=== PATIENT | female | born 1960 | race Caucasian/White ===

== ENCOUNTER → 2016-06-29 | Outpatient (CLI) | payer MEDICAID ==
[~2016-06-29] MED LIST: ADVAIR 500/28 DISKU1 IH; ADVAIR 500/28 DISKUS IH; ALPARAZOLAM0.5 MG PO; ALPRAZOLAM0.5 MG PO; AMBIEN10 MG PO; CELEXA40 MG PO; CEPHALEXIN500 M1 PO; CETIRIZINE; CLEOCIN HC150 MG/CAP PO; CLEOCIN HCL300 MG PO; CLONAZEPAM PO; CYMBALTA 30MG30 MG PO; DAZIDOX20 MG PO; DILAUDID 2MG TAB2 MG PO; DONNATAL 10 ML10 ML PO; DOXYCYCLINE 10100 MG PO; FLEXERIL 1010 MG/TAB PO; FLONASE NASAL S16 GM NS; FLONASEALLERGY NS; GEODON 40MG40 MG PO; INDERAL 10MG10 MG PO; INDERAL 20MG20 MG PO; KADIAN30 MG PO; KLONOPIN 1MG1 MG PO; KLONOPIN2 MG PO; LEVAQUIN 2250 MG/TAB PO; LEVAQUIN 750MG750 M1 PO; LINZESS290CAP PO; LOPERAMIDE2 MG PO; LOPRESSOR 225 MG/TAB PO; LYRICA 50MG CAP50 MG PO; MEDROL 4MG DOSPA4 MG PO; MINIPRESS2 MG PO; MOBIC15 MG PO; MOTRIN 800800 MG/TAB PO; MUCINEX DM 30 M1 TE1 PO; NASONEX0.05 MG/AC NS; NATURAL IRON65 MG PO; NEURONTIN300 MG/CAP PO; NICODERM C7 MG/PATCH TD; NORCO 325 MG-51 TAB PO; NUCYNTA100 MG PO; OMNICEF 300MG300 MG PO; OXYCONTIN15 MG PO; PEPCID 20MG TAB20 MG PO; PERCOCET 325 MG1 TA2 PO; PERCOCET 325 MG1 TAB PO; PHENERGAN 25 TA25 MG PO; PREDNISONE20 M1 PO; PREDNISONE20 MG PO; PRILOSEC 20MG20 MG PO; PRINIVIL10 MG PO; PRINZIDE 12.5 M1 TA1 PO; PRINZIDE 25 MG-1 TAB PO; PROAIR HFA0.09 MG/AC IH; PROVENTIL0.09 MG/A1 IH; PROZAC40 MG PO; REMERON 15M15 MG/TA1 PO; RESTORIL30 MG PO; RITALIN 20M20 MG/TAB PO; RT ADVAIR 228 DISKUS IH; RT ADVAIR 528 DISKUS IH; SEROQUEL 1100 MG/TAB PO; SEROQUEL50 MG PO; TAMIFLU 75MG75 MG PO; TEMAZEPAM7.5 MG PO; TENORMIN25 MG PO; TOPROL XL 25MG25 MG PO; ULTRAM 50MG TAB50 MG PO; VICODIN ES 7.5; VISTARIL50 MG PO; WELLBUTRIN SR150 M1 PO; WELLBUTRIN XL150 MG PO; ZESTRIL 10MG10 MG PO; ZITHROMAX Z PA250 MG PO; ZOFRAN4 M1 PO; ZOFRAN8 MG PO; ZYRTEC 10MG10 MG PO; ZYRTEC10 MG PO; [UNRECOGNIZED DRUG - REMARK]
== END ==
LOC: COL.RAD 12:13
DX: M77.8 Other enthesopathies, not elsewhere classified (principal); S43.492A Other sprain of left shoulder joint, initial encounter; M19.012 Primary osteoarthritis, left shoulder; G89.29 Other chronic pain

== ENCOUNTER 2016-09-09 09:03 | Emergency (ER) | payer MEDICAID ==
[~2016-09-09] VITALS: Ht 162.6 cm; Wt 77.3 kg
[~2016-09-09 09:03] MED LIST changes: -FLONASE NASAL S16 GM NS; -GEODON 40MG40 MG PO; -INDERAL 20MG20 MG PO; -LEVAQUIN 750MG750 M1 PO; -MEDROL 4MG DOSPA4 MG PO; -MINIPRESS2 MG PO; -MUCINEX DM 30 M1 TE1 PO; -NICODERM C7 MG/PATCH TD; -PRINIVIL10 MG PO; -RT ADVAIR 228 DISKUS IH; -SEROQUEL 1100 MG/TAB PO
[2016-09-09 09:05] VITALS: TEMP 97.9
[2016-09-09] MEDS ORDERED: SEROQUEL 1100 MG/TAB PO (09:09)
[2016-09-09] MEDS ORDERED: INDERAL 20MG20 MG PO (09:09)
[2016-09-09] MEDS ORDERED: CLEOCIN HC150 MG/CAP PO ×2 (10:12→10:15)
[2016-09-09 10:30] VITALS: BP 108/54; PULSE 67
== END 2016-09-09 10:31 | disposition home or self-care (01) ==
LOC: COL.ER 09:03
DX: J36 Peritonsillar abscess (principal); F17.210 Nicotine dependence, cigarettes, uncomplicated

== ENCOUNTER 2017-01-24 16:20 | Observation (INO) | payer MEDICAID ==
[~2017-01-24] VITALS: Ht 165 cm; Wt 91.4 kg
[~2017-01-24 16:20] MED LIST changes: +INDERAL 20MG20 MG PO; +SEROQUEL 1100 MG/TAB PO
[2017-01-24] MEDS ORDERED: PRINIVIL10 MG PO (16:26)
[2017-01-24] MEDS ORDERED: MINIPRESS2 MG PO (16:27)
[2017-01-24] MEDS ORDERED: PREDNISONE20 MG PO (16:27)
[2017-01-24] MEDS ORDERED: DOXYCYCLINE 10100 MG PO (16:27)
[2017-01-24 17:08] LABS: BASO % 0.3 % (0.0-2.0); EOS # 0.1 (0.0-0.7); EOS % 0.4 % (0-4.0); GRAN # 8.8 (1.4-6.5); GRAN % 68.4 % (42.2-75.2); HEMOGLOBIN 13.5 g/dl (12.5-16.0); LYMPH # 2.7 (1.2-3.4); LYMPH % 20.8 % (20.0-51.0); MEAN CELL VOLUME 86 fl (80.0-100.0); MEAN CORPUSCULAR HEMOGLOBIN 31 pg (27.0-31.0); MEAN CORPUSCULAR HGB CONC 36 g/dl (33.0-37.0); MEAN PLATELET VOLUME 8.9 fl (7.4-10.4); MONO # 1.1 (0.1-0.6); MONO % 8.4 % (1.7-9.3); PLATELET COUNT 359 K/mm3 (130-400); RED BLOOD COUNT 4.43 M/mm3 (4.10-5.30); WHITE BLOOD COUNT 12.9 K/mm3 (4.8-10.8)
[2017-01-24 17:18] LABS: ADJUSTED CALCIUM 9.4 mg/dL (8.4-10.2); ALANINE AMINOTRANSFERASE 23 U/L (9-52); ALBUMIN 4.1 gm/dL (3.5-5.0); ALKALINE PHOSPHATASE 130 U/L (50-136); ANION GAP 13 mmol/L (7-16); BILIRUBIN,TOTAL 0.7 mg/dL (0.0-1.0); BLOOD UREA NITROGEN 24 mg/dL (7-17); CALCIUM 9.5 mg/dL (8.4-10.2); CARBON DIOXIDE 22 mmol/L (22-30); CHLORIDE 94 mmol/L (98-107); CREATININE, serum 1.39 mg/dL (0.52-1.25); GLUCOSE 119 mg/dL (74-106); POTASSIUM 3.7 mmol/L (3.4-5.0); SODIUM 130 mmol/L (137-145); TOTAL PROTEIN 7.2 gm/dL (6.4-8.2)
[2017-01-24 17:30] LABS: TROPONIN-I < 0.012 ng/mL (0.000-0.034)
[2017-01-24 20:44] VITALS: BP 124/79; PULSE 90; TEMP 97.1
[2017-01-24] MEDS ORDERED: ULTRAM 50MG TAB50 MG PO (21:12)
[2017-01-24] MEDS ORDERED: PRINZIDE 25 MG-1 TAB PO (21:13)
[2017-01-24] MEDS ORDERED: LOPRESSOR 225 MG/TAB PO (21:25)
[2017-01-24 23:21] VITALS: BP 120/70; PULSE 76; TEMP 97.9
[2017-01-25 03:36] VITALS: BP 116/67; PULSE 72; TEMP 98.7
[2017-01-25 07:28] LABS: MEAN CELL VOLUME 87 fl (80.0-100.0); MEAN CORPUSCULAR HGB CONC 35 g/dl (33.0-37.0); MEAN PLATELET VOLUME 9.2 fl (7.4-10.4); PLATELET COUNT 312 K/mm3 (130-400); RED BLOOD COUNT 3.87 M/mm3 (4.10-5.30); WHITE BLOOD COUNT 14.7 K/mm3 (4.8-10.8)
[2017-01-25 07:32] LABS: ADD PATHOLOGY DIFF REVIEW NO; HEMATOCRIT 33.6 % (37.0-47.0); HEMOGLOBIN 11.9 g/dl (12.5-16.0); MEAN CORPUSCULAR HEMOGLOBIN 31 pg (27.0-31.0)
[2017-01-25 07:42] LABS: ADJUSTED CALCIUM 9.3 mg/dL (8.4-10.2); ALBUMIN 3.5 gm/dL (3.5-5.0); BILIRUBIN,TOTAL 0.5 mg/dL (0.0-1.0); CALCIUM 8.9 mg/dL (8.4-10.2); CREATININE, serum 1.18 mg/dL (0.52-1.25); POTASSIUM 3.9 mmol/L (3.4-5.0); TOTAL PROTEIN 6.3 gm/dL (6.4-8.2)
[2017-01-25 07:59] VITALS: BP 134/72; PULSE 64; TEMP 97.9
[2017-01-25 08:01] LABS: BAND 10 % (0-10); METAMYELOCYTE 1 % (0-0); PLATELET ESTIMATE NORMAL (NORMAL); TOTAL CELLS COUNTED 100
[2017-01-25 08:02] LABS: NEUTROPHILS 79 % (42.0-75.2)
[2017-01-25 11:55] VITALS: BP 147/77; PULSE 75; TEMP 98.4
[2017-01-25] MEDS ORDERED: LEVAQUIN 750MG750 M1 PO (13:00)
[2017-01-25] MEDS ORDERED: FLONASE NASAL S16 GM NS (13:01)
[2017-01-25] MEDS ORDERED: MUCINEX DM 30 M1 TE1 PO (13:01)
[2017-01-25] MEDS ORDERED: NICODERM C7 MG/PATCH TD (13:05)
[2017-01-25] MEDS ORDERED: RT ADVAIR 228 DISKUS IH (13:07)
[2017-01-25] MEDS ORDERED: MEDROL 4MG DOSPA4 MG PO (13:08)
== END 2017-01-25 15:25 | disposition home health service (06) ==
LOC: COL.ER 16:20 → MEDICAL 18:22
PROVIDERS: Emergency Medicine; Nurse Practitioner Family
DX: J44.1 Chronic obstructive pulmonary disease with (acute) exacerbation (principal); N17.9 Acute kidney failure, unspecified; F17.210 Nicotine dependence, cigarettes, uncomplicated; E87.1 Hypo-osmolality and hyponatremia; E86.0 Dehydration; I10 Essential (primary) hypertension; E78.5 Hyperlipidemia, unspecified; F41.9 Anxiety disorder, unspecified; F32.9 Major depressive disorder, single episode, unspecified; F43.10 Post-traumatic stress disorder, unspecified; R63.5 Abnormal weight gain
CPT/HCPCS: G0378; J1644; J1956; J7030; J7512

== ENCOUNTER 2017-01-30 19:11 | Inpatient (IN) | payer MEDICAID ==
[2017-01-30] VITALS (71 sets, daily range): BP systolic 110; BP diastolic 65; PULSE 64; TEMP 97.1; O2SAT 83–100
[~2017-01-30] VITALS: Ht 165.1 cm; Wt 91.6 kg
[~2017-01-30 19:11] MED LIST changes: +FLONASE NASAL S16 GM NS; +LEVAQUIN 750MG750 M1 PO; +MEDROL 4MG DOSPA4 MG PO; +MINIPRESS2 MG PO; +MUCINEX DM 30 M1 TE1 PO; +NICODERM C7 MG/PATCH TD; +PRINIVIL10 MG PO; +RT ADVAIR 228 DISKUS IH
[2017-01-30 19:43] LABS: HEMATOCRIT 40.7 % (37.0-47.0); HEMOGLOBIN 13.7 g/dl (12.5-16.0); MEAN CELL VOLUME 91 fl (80.0-100.0); MEAN CORPUSCULAR HEMOGLOBIN 31 pg (27.0-31.0); MEAN CORPUSCULAR HGB CONC 34 g/dl (33.0-37.0); MEAN PLATELET VOLUME 9.3 fl (7.4-10.4); PLATELET COUNT 317 K/mm3 (130-400); RED BLOOD COUNT 4.49 M/mm3 (4.10-5.30); REDCELL DISTRIBUTION WIDTH-CV 14.4 % (11.5-14.5)
[2017-01-30 19:45] LABS: ALANINE AMINOTRANSFERASE 15 U/L (9-52); ALBUMIN 3.9 gm/dL (3.5-5.0); ALKALINE PHOSPHATASE 83 U/L (50-136); ANION GAP 13 mmol/L (7-16); BILIRUBIN,TOTAL 0.5 mg/dL (0.0-1.0); BLOOD UREA NITROGEN 36 mg/dL (7-17); CALCIUM 8.9 mg/dL (8.4-10.2); CARBON DIOXIDE 22 mmol/L (22-30); CHLORIDE 97 mmol/L (98-107); CREATININE, serum 1.62 mg/dL (0.52-1.25); GLUCOSE 103 mg/dL (74-106); POTASSIUM 3.1 mmol/L (3.4-5.0); SODIUM 132 mmol/L (137-145)
[2017-01-30 19:56] LABS: ADD PATHOLOGY DIFF REVIEW NO; WHITE BLOOD COUNT 20.4 K/mm3 (4.8-10.8)
[2017-01-30 20:10] LABS: BAND 5 % (0-10); EOSINOPHIL 1 % (0-4); NEUTROPHILS 63 % (42.0-75.2); PLATELET ESTIMATE NORMAL (NORMAL); TOTAL CELLS COUNTED 100
[2017-01-30] MEDS ORDERED: GEODON 40MG40 MG PO (21:32)
[2017-01-30 21:33] LABS: PH 5 (5-8); SQUAMOUS EPITHELIAL 0-2 /hpf; URINE APPEARANCE Clear; URINE BACTERIA Rare /hpf; URINE BILIRUBIN Negative (NEGATIVE); URINE BLOOD Negative (NEGATIVE); URINE COLOR Yellow; URINE GLUCOSE Negative (NEGATIVE); URINE KETONE Negative (NEGATIVE); URINE RBC 0-2 /hpf; URINE UROBILINOGEN Negative (NEGATIVE); URINE WBC 0-2 /hpf
[2017-01-30 22:22] LABS: C-REACTIVE PROTEIN < 0.5 mg/dL (0.0-0.9)
[2017-01-31] VITALS (617 sets, daily range): BP systolic 97–130; BP diastolic 53–92; PULSE 64–92; TEMP 97–98.2; O2SAT 92–100
[2017-01-31 05:05] LABS: HEMATOCRIT 34.5 % (37.0-47.0); HEMOGLOBIN 11.6 g/dl (12.5-16.0); MEAN CELL VOLUME 90 fl (80.0-100.0); MEAN CORPUSCULAR HEMOGLOBIN 30 pg (27.0-31.0); MEAN CORPUSCULAR HGB CONC 34 g/dl (33.0-37.0); MEAN PLATELET VOLUME 9.2 fl (7.4-10.4); PLATELET COUNT 225 K/mm3 (130-400); RED BLOOD COUNT 3.85 M/mm3 (4.10-5.30); REDCELL DISTRIBUTION WIDTH-CV 14.3 % (11.5-14.5); WHITE BLOOD COUNT 14.7 K/mm3 (4.8-10.8)
[2017-01-31 05:06] LABS: ADD PATHOLOGY DIFF REVIEW NO
[2017-01-31 05:19] LABS: CALCIUM 8.1 mg/dL (8.4-10.2); CREATININE, serum 1.18 mg/dL (0.52-1.25); MAGNESIUM 2.2 mg/dL (1.6-2.3); POTASSIUM 4.2 mmol/L (3.4-5.0)
[2017-01-31 05:37] LABS: BAND 3 % (0-10); METAMYELOCYTE 1 % (0-0); NEUTROPHILS 78 % (42.0-75.2); TOTAL CELLS COUNTED 100
[2017-01-31 05:38] LABS: PLATELET ESTIMATE NORMAL (NORMAL)
[2017-02-01 03:58] VITALS: BP 89/49; PULSE 70; TEMP 98.1
[2017-02-01 07:40] VITALS: BP 96/56; PULSE 60; TEMP 97.7
[2017-02-01 09:06] LABS: MEAN CELL VOLUME 92 fl (80.0-100.0); MEAN CORPUSCULAR HGB CONC 33 g/dl (33.0-37.0); MEAN PLATELET VOLUME 9.5 fl (7.4-10.4); PLATELET COUNT 250 K/mm3 (130-400); RED BLOOD COUNT 3.76 M/mm3 (4.10-5.30); REDCELL DISTRIBUTION WIDTH-CV 14.6 % (11.5-14.5); WHITE BLOOD COUNT 14.4 K/mm3 (4.8-10.8)
[2017-02-01 09:10] LABS: ADD PATHOLOGY DIFF REVIEW NO; HEMATOCRIT 34.4 % (37.0-47.0); HEMOGLOBIN 11.4 g/dl (12.5-16.0); MEAN CORPUSCULAR HEMOGLOBIN 30 pg (27.0-31.0)
[2017-02-01 09:49] LABS: BAND 5 % (0-10); EOSINOPHIL 1 % (0-4); METAMYELOCYTE 1 % (0-0); NEUTROPHILS 58 % (42.0-75.2); PLATELET ESTIMATE NORMAL (NORMAL); TOTAL CELLS COUNTED 100
[2017-02-01 11:30] VITALS: BP 90/55; PULSE 69; TEMP 98.6
[2017-02-01 15:11] VITALS: BP 106/49; PULSE 72; TEMP 98.3
[2017-02-01] MEDS ORDERED: KLONOPIN 1MG1 MG PO (17:06)
== END 2017-02-01 17:45 | disposition home or self-care (01) | DRG 315 ==
LOC: COL.ER 19:11 → ICU 21:34 → MEDICAL 01-31 12:20
PROVIDERS: Emergency Medicine; Internal Medicine; Nurse Practitioner Family
DX: I95.9 Hypotension, unspecified (principal); N17.9 Acute kidney failure, unspecified; E87.1 Hypo-osmolality and hyponatremia; I10 Essential (primary) hypertension; F17.210 Nicotine dependence, cigarettes, uncomplicated; E86.1 Hypovolemia; E87.6 Hypokalemia; E86.0 Dehydration; F41.9 Anxiety disorder, unspecified; R00.1 Bradycardia, unspecified
CPT/HCPCS: 99223-AI; 99233-AI; 99239; J1644; J1720; J3475; J7030; J7512

== ENCOUNTER 2017-03-01 22:21 | Emergency (ER) | payer MEDICAID ==
[~2017-03-01] VITALS: Ht 165.1 cm; Wt 88.6 kg
[~2017-03-01 22:21] MED LIST changes: +GEODON 40MG40 MG PO
[2017-03-01 22:24] VITALS: TEMP 97.9
[2017-03-01 23:34] VITALS: BP 137/75; PULSE 70
[2017-03-01] MEDS ORDERED: NORCO 325 MG-51 TAB PO (23:37)
== END 2017-03-01 23:45 | disposition home or self-care (01) ==
LOC: COL.ER 22:21
DX: M62.838 Other muscle spasm (principal); M54.2 Cervicalgia; F41.9 Anxiety disorder, unspecified; J44.9 Chronic obstructive pulmonary disease, unspecified; F17.200 Nicotine dependence, unspecified, uncomplicated

== ENCOUNTER 2017-07-08 08:35 | Emergency (ER) | payer MEDICAID ==
[~2017-07-08 08:35] MED LIST changes: +FLEXERIL5 MG PO; +VALIUM 5MG T5 MG/TAB PO
[2017-07-08 08:36] VITALS: TEMP 97.9
[2017-07-08 08:40] VITALS: BP 108/95
[2017-07-08 10:38] LABS: COLLECTION METHOD CLEAN CATCH
[2017-07-08 10:49] LABS: MUCOUS Present /lpf; PH 5 (5-8); URINE APPEARANCE Clear; URINE BACTERIA None Seen /hpf; URINE BILIRUBIN Negative (NEGATIVE); URINE BLOOD Negative (NEGATIVE); URINE COLOR Yellow; URINE GLUCOSE Negative (NEGATIVE); URINE KETONE Negative (NEGATIVE); URINE LEUKOCYTE ESTERASE Negative (NEGATIVE); URINE NITRATE Negative (NEGATIVE); URINE PROTEIN(semi-quant) Negative (NEGATIVE); URINE RBC 0-2 /hpf; URINE UROBILINOGEN Negative (NEGATIVE)
[2017-07-08] MEDS ORDERED: FLEXERIL 1010 MG/TAB PO (10:51)
[2017-07-08] MEDS ORDERED: PERCOCET 325 MG1 TA2 PO (10:51)
[2017-07-08 11:11] VITALS: PULSE 77
[2017-07-08] MEDS ORDERED: ZOFRAN ODT4 MG PO (14:30)
== END 2017-07-08 11:12 | disposition home or self-care (01) ==
LOC: COL.ER 08:35
PROVIDERS: Emergency Medicine
DX: S39.012A Strain of muscle, fascia and tendon of lower back, initial encounter (principal); I10 Essential (primary) hypertension; J44.9 Chronic obstructive pulmonary disease, unspecified; Z98.51 Tubal ligation status; Z98.84 Bariatric surgery status; Z79.51 Long term (current) use of inhaled steroids; W00.0XXA Fall on same level due to ice and snow, initial encounter; W22.8XXA Striking against or struck by other objects, initial encounter
CPT/HCPCS: J1885; J3010

== ENCOUNTER 2018-01-01 18:21 | Emergency (ER) | payer MEDICAID ==
[~2018-01-01] VITALS: Ht 165.1 cm; Wt 86.4 kg
[~2018-01-01 18:21] MED LIST changes: +ZOFRAN ODT4 MG PO
[2018-01-01 18:25] VITALS: TEMP 98
[2018-01-01] MEDS ORDERED: SEROQUEL400 MG PO (19:36)
[2018-01-01] MEDS ORDERED: INDERAL 20MG20 MG PO (19:36)
[2018-01-01] MEDS ORDERED: FLEXERIL 1010 MG/TAB PO (20:26)
[2018-01-01] MEDS ORDERED: NORCO 325 MG-51 TAB PO (20:26)
[2018-01-01 20:48] VITALS: BP 219/173; PULSE 79
== END 2018-01-01 20:49 | disposition home or self-care (01) ==
LOC: COL.ER 18:21
DX: S39.012A Strain of muscle, fascia and tendon of lower back, initial encounter (principal); I10 Essential (primary) hypertension; F17.210 Nicotine dependence, cigarettes, uncomplicated; W19.XXXA Unspecified fall, initial encounter; Y92.009 Unspecified place in unspecified non-institutional (private) residence as the place of occurrence of the external cause
CPT/HCPCS: J1885; J2360

== ENCOUNTER → 2018-01-06 | Outpatient (CLI) | payer MEDICAID ==
[~2018-01-06] MED LIST changes: +SEROQUEL400 MG PO
== END ==
LOC: MC.RAD 13:55
DX: Z12.31 Encounter for screening mammogram for malignant neoplasm of breast (principal)

== ENCOUNTER → 2018-01-20 | Outpatient (CLI) | payer MEDICAID ==
[~2018-01-20] VITALS: Ht 165.1 cm; Wt 84.6 kg
[~2018-01-20] MED LIST changes: +FOSAMAX 70MG TA70 MG PO
[2018-01-20 14:42] VITALS: BP 136/90; PULSE 74
[2018-01-20 16:00] VITALS: BP 150/99; PULSE 67
[2018-01-20 16:53] LABS: GLUCOSE,PLEURAL FLUID 96 mg/dL
[2018-01-20 16:56] LABS: TOTAL PROTEIN,PLEURAL FLUID < 2.0 gm/dL
== END ==
LOC: COL.RAD 13:26
PROVIDERS: Family Medicine
DX: J44.9 Chronic obstructive pulmonary disease, unspecified (principal); J90 Pleural effusion, not elsewhere classified
CPT/HCPCS: 19804

== ENCOUNTER → 2018-02-06 | Outpatient (CLI) | payer MEDICAID | LOC: COL.VAS 01-30 13:15 | DX: J90 Pleural effusion, not elsewhere classified (principal); I34.0 Nonrheumatic mitral (valve) insufficiency ==

== ENCOUNTER 2018-03-07 06:33 | Day surgery (SDC) | payer MEDICAID ==
[~2018-03-07] VITALS: Ht 165.2 cm; Wt 84.0 kg
[2018-03-07] VITALS (13 sets, daily range): BP systolic 104–202; BP diastolic 91–117; PULSE 58–84; TEMP 97.4–97.8
[2018-03-07 07:02] LABS: HEMOGLOBIN 12.3 g/dl (12.5-16.0); MEAN CELL VOLUME 90 fl (80.0-100.0); MEAN CORPUSCULAR HEMOGLOBIN 31 pg (27.0-31.0); MEAN CORPUSCULAR HGB CONC 34 g/dl (33.0-37.0); MEAN PLATELET VOLUME 10.2 fl (7.4-10.4); PLATELET COUNT 250 K/mm3 (130-400); RED BLOOD COUNT 4.01 M/mm3 (4.10-5.30); REDCELL DISTRIBUTION WIDTH-CV 14.1 % (11.5-14.5)
[2018-03-07 07:03] LABS: HEMATOCRIT 35.9 % (37.0-47.0)
[2018-03-07 07:11] LABS: INR 1.1 (0.8-3.0); PROTHROMBIN TIME 12.8 SECONDS (9.7-12.8)
[2018-03-07 07:12] LABS: CALCIUM 8.5 mg/dL (8.4-10.2); CREATININE, serum 0.85 mg/dL (0.52-1.25); POTASSIUM 3.3 mmol/L (3.4-5.0)
[2018-03-07] MEDS ORDERED: TOPROL XL 25MG25 MG PO (07:44)
[2018-03-07] MEDS ORDERED: BENADRYL25 M2 PO (07:45)
[2018-03-07] MEDS ORDERED: PREDNISONE20 MG PO ×2 (07:47→10:17)
[2018-03-07] MEDS ORDERED: ASPIRIN E.C. 8181 MG PO (07:47)
[2018-03-07] MEDS ORDERED: PEPCID40 MG PO (07:48)
[2018-03-07] MEDS ORDERED: SEROQUEL300 MG PO (07:49)
[2018-03-07] MEDS ORDERED: FLONASEALLERGY NS (07:51)
[2018-03-07] MEDS ORDERED: RT ADVAIR 228 DISKUS IH (07:52)
[2018-03-07] MEDS ORDERED: ALTACE 5MG5 MG PO (10:14)
[2018-03-07] MEDS ORDERED: PEPCID AC 10MG10 MG PO (10:18)
== END 2018-03-07 16:50 | disposition home or self-care (01) ==
LOC: COL.CAR 06:33
PROVIDERS: Internal Medicine Cardiovascular Disease
DX: I20.0 Unstable angina (principal); I42.9 Cardiomyopathy, unspecified; R94.39 Abnormal result of other cardiovascular function study; I34.0 Nonrheumatic mitral (valve) insufficiency; F41.9 Anxiety disorder, unspecified; J45.909 Unspecified asthma, uncomplicated; G89.29 Other chronic pain; F32.9 Major depressive disorder, single episode, unspecified; K21.9 Gastro-esophageal reflux disease without esophagitis; I10 Essential (primary) hypertension; K58.9 Irritable bowel syndrome, unspecified; Z96.652 Presence of left artificial knee joint; Z88.5 Allergy status to narcotic agent; Z88.0 Allergy status to penicillin; Z88.8 Allergy status to other drugs, medicaments and biological substances; Z87.891 Personal history of nicotine dependence; Z80.9 Family history of malignant neoplasm, unspecified; Z82.49 Family history of ischemic heart disease and other diseases of the circulatory system
CPT/HCPCS: J1200; J1644; J2250; J3010; Q9967

== ENCOUNTER 2018-11-22 08:16 | Inpatient (IN) | payer SELFPAY ==
[2018-11-22] VITALS (291 sets, daily range): BP systolic 50–155; BP diastolic 28–95; PULSE 57–100; TEMP 97.4–98.5; O2SAT 77–100
[~2018-11-22] VITALS: Ht 165.2 cm; Wt 77.0 kg
[~2018-11-22 08:16] MED LIST changes: +ALTACE 5MG5 MG PO; +ASPIRIN E.C. 8181 MG PO; +BENADRYL25 M2 PO; +PEPCID AC 10MG10 MG PO; +PEPCID40 MG PO; +SEROQUEL300 MG PO
[2018-11-22] MEDS ORDERED: PROAIR HFA0.09 MG/AC IH (09:19)
[2018-11-22] MEDS ORDERED: ZYRTEC 10MG10 MG PO (09:20)
[2018-11-22] MEDS ORDERED: MITIGARE0.6 MG PO (09:21)
[2018-11-22] MEDS ORDERED: INDERAL 20MG20 MG PO (09:23)
[2018-11-22] MEDS ORDERED: ALTACE 10MG TAB10 MG PO (09:25)
[2018-11-22 09:32] LABS: BASO # 0.1 (0.0-0.2); BASO % 0.9 % (0.0-2.0); EOS # 0.3 (0.0-0.7); EOS % 6.2 % (0-4.0); GRAN # 2.9 (1.4-6.5); GRAN % 54.6 % (42.2-75.2); HEMATOCRIT 37.2 % (37.0-47.0); HEMOGLOBIN 12.5 g/dl (12.5-16.0); LYMPH # 1.5 (1.2-3.4); MEAN CELL VOLUME 87 fl (80.0-100.0); MEAN CORPUSCULAR HEMOGLOBIN 29 pg (27.0-31.0); MEAN CORPUSCULAR HGB CONC 34 g/dl (33.0-37.0); MONO # 0.5 (0.1-0.6); MONO % 9.9 % (1.7-9.3); PLATELET COUNT 206 K/mm3 (130-400); RED BLOOD COUNT 4.28 M/mm3 (4.10-5.30); REDCELL DISTRIBUTION WIDTH-CV 14.4 % (11.5-14.5)
[2018-11-22] MEDS ORDERED: NORVASC 10MG10 MG PO (09:39)
[2018-11-22] MEDS ORDERED: DRISDOL50000 IU PO (09:39)
[2018-11-22 09:41] LABS: CALCIUM 8.6 mg/dL (8.4-10.2); CREATININE, serum 0.82 (0.52-1.25); POTASSIUM 3.6 mmol/L (3.4-5.0)
[2018-11-22 09:42] LABS: PROTHROMBIN TIME 11.8 SECONDS (9.7-12.8)
--- NOTE | 2018-11-22 10:04 | NUR ---
SEE MERGE DOCUMENTATION FOR MEDICATION ADMINISTRATION TIMES AND INTRA/POST PROCEDURE SEDATION ASSESSMENTS.
[2018-11-22 12:16] LABS: HEMATOCRIT 24.6 % (37.0-47.0); HEMOGLOBIN 8.1 g/dl (12.5-16.0)
--- NOTE | 2018-11-22 12:20 | NUR ---
Patient transferred to ICU #5 via bed, patient reporting " chest tightness and shortness of breath" Ray,RN, Pedro,RN, Magalie,RN, Steff,RN and this RN all at bedside. Assessment complete.
--- NOTE | 2018-11-22 12:30 | NUR ---
Assessment complete, patient with muffled heart tones, diminished lung sounds, patient with impending doom, states "I am doing to ."
--- NOTE | 2018-11-22 13:25 | NUR ---
1ST unit PRBC's hung, VS as charted.
--- NOTE | 2018-11-22 14:11 | NUR ---
Patient requests me to call her "ex-" so he can come to the hospital. Message left at this time.
--- NOTE | 2018-11-22 14:46 | NUR ---
Ashutosh Wheeler, "ex-" at bedside.
--- NOTE | 2018-11-22 16:15 | NUR ---
Report called to Hitesh at [facility] in [place].
--- NOTE | 2018-11-22 16:20 | NUR ---
Patient reports increased shortness of breath, chest tightness, Dr. Edward notified, new orders received.
--- NOTE | 2018-11-22 16:55 | NUR ---
Pt requested to have this nurse call Ashutosh - Ex- and ask him to bring their daughter from [place] to [place] where she is being transfered. Mulitple questions answered to Ashutosh Boykin then asked to speak with patient.
--- NOTE | 2018-11-22 17:00 | NUR ---
Called Juan Heath to come pray with the patient before her transfer. (Per pt request)
--- NOTE | 2018-11-22 17:11 | NUR ---
ya Martinez here to pray with pt.
--- NOTE | 2018-11-22 17:20 | NUR ---
[facility] here to transport.
--- NOTE | 2018-11-22 17:25 | NUR ---
[facility] uncomfortable with transporting patient, Dr. Edward notified, orders to go by [facility] received.
--- NOTE | 2018-11-22 17:56 | NUR ---
[facility] in [place] was called with ETA, update given.
--- NOTE | 2018-11-22 18:05 | NUR ---
[facility] here for transport to [facility] in [place].
--- NOTE | 2018-11-22 18:30 | NUR ---
Patient taken to [facility], MARLON Mejias at bedside.
== END 2018-11-22 18:30 | disposition short-term general hospital (02) | DRG 287 ==
LOC: COL.CAR 08:16 → ICU 11:48
PROVIDERS: Nurse Practitioner; ADMIT Internal Medicine Cardiovascular Disease
PROC: 4A023N6 Measurement of Cardiac Sampling and Pressure, Right Heart, Percutaneous Approach (ICD-10-PCS; principal; 2018-11-22)
PROC: 0W9D30Z Drainage of Pericardial Cavity with Drainage Device, Percutaneous Approach (ICD-10-PCS; 2018-11-22)
PROC: 03HY32Z Insertion of Monitoring Device into Upper Artery, Percutaneous Approach (ICD-10-PCS; 2018-11-22)
DX: I31.3 Pericardial effusion (noninflammatory) (principal); D64.9 Anemia, unspecified; Z88.0 Allergy status to penicillin
CPT/HCPCS: A4314; C1729; C1769; C1894; J1644; J1940; J2250; J3010; J3370; J7030; J7050; P9016

== ENCOUNTER 2018-12-01 16:31 | Emergency (ER) | payer SELFPAY ==
[~2018-12-01 16:31] MED LIST changes: +ALTACE 10MG TAB10 MG PO; +DRISDOL50000 IU PO; +MITIGARE0.6 MG PO; +NORVASC 10MG10 MG PO
[2018-12-01 16:36] VITALS: TEMP 98.3
[2018-12-01 17:51] LABS: BASO # 0.1 (0.0-0.2); BASO % 0.8 % (0.0-2.0); EOS # 0.6 (0.0-0.7); EOS % 8.2 % (0-4.0); GRAN # 3.4 (1.4-6.5); GRAN % 43.3 % (42.2-75.2); HEMATOCRIT 37.2 % (37.0-47.0); HEMOGLOBIN 12.4 g/dl (12.5-16.0); LYMPH # 2.4 (1.2-3.4); LYMPH % 30.6 % (20.0-51.0); MEAN CELL VOLUME 90 fl (80.0-100.0); MEAN CORPUSCULAR HEMOGLOBIN 30 pg (27.0-31.0); MEAN CORPUSCULAR HGB CONC 33 g/dl (33.0-37.0); MEAN PLATELET VOLUME 10.3 fl (7.4-10.4); MONO # 1.3 (0.1-0.6); MONO % 16.3 % (1.7-9.3); PLATELET COUNT 388 K/mm3 (130-400); RED BLOOD COUNT 4.15 M/mm3 (4.10-5.30); REDCELL DISTRIBUTION WIDTH-CV 14.6 % (11.5-14.5)
[2018-12-01 18:03] LABS: ALANINE AMINOTRANSFERASE 19 U/L (9-52); ALBUMIN 3.3 gm/dL (3.5-5.0); ALKALINE PHOSPHATASE 149 U/L (50-136); ANION GAP 11 mmol/L (7-16); AST,SGOT 34 U/L (15-37); BILIRUBIN,TOTAL 0.7 mg/dL (0.0-1.0); BLOOD UREA NITROGEN 8 mg/dL (7-17); CALCIUM 8.6 mg/dL (8.4-10.2); CARBON DIOXIDE 24 mmol/L (22-30); CHLORIDE 101 mmol/L (98-107); CREATININE, serum 0.92 (0.52-1.25); GLUCOSE 96 mg/dL (74-106); POTASSIUM 3.3 mmol/L (3.4-5.0); SODIUM 136 mmol/L (137-145); TOTAL PROTEIN 6.3 gm/dL (6.4-8.2)
[2018-12-01 18:14] LABS: PROTHROMBIN TIME 11.8 SECONDS (9.7-12.8)
[2018-12-01 18:16] LABS: PARTIAL THROMBOPLASTIN TIME 33.6 SECONDS (26.0-37.0)
[2018-12-01 18:32] LABS: TROPONIN-I < 0.012 ng/mL (0.000-0.035)
[2018-12-01 18:45] VITALS: BP 99/80
== END 2018-12-01 18:45 | disposition home or self-care (01) ==
LOC: COL.ER 16:31
PROVIDERS: Family Medicine
DX: R06.02 Shortness of breath (principal); J44.9 Chronic obstructive pulmonary disease, unspecified; Z79.82 Long term (current) use of aspirin; Z86.79 Personal history of other diseases of the circulatory system

== ENCOUNTER 2019-02-27 09:43 | Emergency (ER) | payer SELFPAY ==
[~2019-02-27] VITALS: Ht 162.6 cm; Wt 75.0 kg
[2019-02-27 10:23] LABS: COLLECTION METHOD CLEAN CATCH
[2019-02-27] MEDS ORDERED: RT ADVAIR 228 DISKUS IH (10:31)
[2019-02-27 10:32] LABS: MUCOUS Present /lpf; PH 5 (5-8); URINE APPEARANCE Hazy; URINE BACTERIA Rare /hpf; URINE BILIRUBIN Negative (NEGATIVE); URINE BLOOD Negative (NEGATIVE); URINE CALCIUM OXALATE CRYSTAL Present /hpf; URINE COLOR Yellow; URINE GLUCOSE Negative (NEGATIVE); URINE KETONE Negative (NEGATIVE); URINE LEUKOCYTE ESTERASE 2+ (NEGATIVE); URINE NITRATE Negative (NEGATIVE); URINE PROTEIN(semi-quant) 1+ (NEGATIVE); URINE UROBILINOGEN Negative (NEGATIVE)
[2019-02-27 10:42] LABS: BASO # 0.1 (0.0-0.2); BASO % 1.1 % (0.0-2.0); EOS # 0.5 (0.0-0.7); EOS % 8.3 % (0-4.0); GRAN # 3.8 (1.4-6.5); GRAN % 58.1 % (42.2-75.2); HEMOGLOBIN 10.6 g/dl (12.5-16.0); LYMPH # 1.5 (1.2-3.4); LYMPH % 23.4 % (20.0-51.0); MEAN CELL VOLUME 85 fl (80.0-100.0); MEAN CORPUSCULAR HEMOGLOBIN 27 pg (27.0-31.0); MEAN CORPUSCULAR HGB CONC 32 g/dl (33.0-37.0); MONO # 0.6 (0.1-0.6); MONO % 8.9 % (1.7-9.3); PLATELET COUNT 237 K/mm3 (130-400); RED BLOOD COUNT 3.88 M/mm3 (4.10-5.30); REDCELL DISTRIBUTION WIDTH-CV 14.2 % (11.5-14.5)
[2019-02-27 10:59] LABS: ALBUMIN 3.5 gm/dL (3.5-5.0); BILIRUBIN,TOTAL 0.6 mg/dL (0.0-1.0); C-REACTIVE PROTEIN 1.2 mg/dL (0.0-0.9); CALCIUM 8.3 mg/dL (8.4-10.2); CREATININE, serum 0.9 (0.52-1.25); POTASSIUM 3.4 mmol/L (3.4-5.0); TOTAL PROTEIN 6.5 gm/dL (6.4-8.2)
[2019-02-27 11:17] VITALS: TEMP 98.2
[2019-02-27] MEDS ORDERED: CEFTIN500 MG PO (11:49)
[2019-02-27] MEDS ORDERED: NORCO 325 MG-51 TAB PO (11:50)
[2019-02-27 12:29] VITALS: BP 189/103; PULSE 63
== END 2019-02-27 12:32 | disposition home or self-care (01) ==
LOC: COL.ER 09:43
PROVIDERS: Physician Assistant
DX: N39.0 Urinary tract infection, site not specified (principal); I10 Essential (primary) hypertension; F32.9 Major depressive disorder, single episode, unspecified; F41.9 Anxiety disorder, unspecified; I42.9 Cardiomyopathy, unspecified; Z87.891 Personal history of nicotine dependence; Z98.51 Tubal ligation status; Z88.0 Allergy status to penicillin; Z79.51 Long term (current) use of inhaled steroids
CPT/HCPCS: J0696

== ENCOUNTER 2019-04-03 08:08 | Emergency (ER) | payer SELFPAY ==
[~2019-04-03] VITALS: Ht 165.1 cm; Wt 75.0 kg
[~2019-04-03 08:08] MED LIST changes: +CEFTIN500 MG PO
[2019-04-03 08:12] VITALS: TEMP 98.4
[2019-04-03] MEDS ORDERED: ALTACE 5MG5 MG PO (08:53)
[2019-04-03] MEDS ORDERED: INDERAL 20MG20 MG PO (08:54)
[2019-04-03] MEDS ORDERED: TOPROL XL 50MG50 MG PO (08:55)
[2019-04-03 09:01] VITALS: BP 179/114; PULSE 69
== END 2019-04-03 09:03 | disposition home or self-care (01) ==
LOC: COL.ER 08:08
DX: M72.2 Plantar fascial fibromatosis (principal); I10 Essential (primary) hypertension; F17.210 Nicotine dependence, cigarettes, uncomplicated; F32.9 Major depressive disorder, single episode, unspecified; F41.9 Anxiety disorder, unspecified; Z98.51 Tubal ligation status; Z98.84 Bariatric surgery status; Z79.82 Long term (current) use of aspirin; Z79.51 Long term (current) use of inhaled steroids
CPT/HCPCS: J1885

== ENCOUNTER 2020-03-21 17:21 | Emergency (ER) | payer SELFPAY ==
[~2020-03-21 17:21] MED LIST changes: +TOPROL XL 50MG50 MG PO
== END 2020-03-21 17:37 | disposition left against medical advice (07) ==
LOC: COL.ER 17:21
DX: R69 Illness, unspecified (principal); Z53.21 Procedure and treatment not carried out due to patient leaving prior to being seen by health care provider; Z79.82 Long term (current) use of aspirin

== ENCOUNTER 2020-03-25 15:15 | Emergency (ER) | payer SELFPAY ==
[~2020-03-25] VITALS: Ht 165.1 cm; Wt 72.7 kg
[2020-03-25 15:21] VITALS: BP 192/109; TEMP 97
[2020-03-25 17:21] VITALS: PULSE 70
== END 2020-03-25 17:22 | disposition home or self-care (01) ==
LOC: COL.ER 15:15
DX: S70.02XA Contusion of left hip, initial encounter (principal); S70.12XA Contusion of left thigh, initial encounter; Z96.642 Presence of left artificial hip joint; Z88.0 Allergy status to penicillin; Z88.4 Allergy status to anesthetic agent; Z79.82 Long term (current) use of aspirin; W01.0XXA Fall on same level from slipping, tripping and stumbling without subsequent striking against object, initial encounter; Y99.0 Civilian activity done for income or pay

== ENCOUNTER 2020-07-17 12:21 | Inpatient (IN) | payer SELFPAY ==
[~2020-07-17] VITALS: Ht 165.1 cm; Wt 76.2 kg
[2020-07-17] VITALS (66 sets, daily range): BP systolic 129–138; BP diastolic 68–81; PULSE 55–62; TEMP 98.1; O2SAT 92–99
[~2020-07-17 12:21] MED LIST changes: -SEROQUEL300 MG PO; -TOPROL XL 50MG50 MG PO; +TOPROL XL100 MG PO
[2020-07-17 13:22] LABS: BASO # 0.1 (0.0-0.2); BASO % 0.8 % (0.0-2.0); EOS # 0.5 (0.0-0.7); EOS % 4.8 % (0-4.0); GRAN # 6.3 (1.4-6.5); GRAN % 62.6 % (42.2-75.2); HEMATOCRIT 37.9 % (37.0-47.0); HEMOGLOBIN 11.8 g/dl (12.5-16.0); LYMPH # 2.3 (1.2-3.4); MEAN CELL VOLUME 82 fl (80.0-100.0); MEAN CORPUSCULAR HEMOGLOBIN 25 pg (27.0-31.0); MEAN CORPUSCULAR HGB CONC 31 g/dl (33.0-37.0); MEAN PLATELET VOLUME 11.3 fl (7.4-10.4); MONO # 0.9 (0.1-0.6); MONO % 8.6 % (1.7-9.3); PLATELET COUNT 262 K/mm3 (130-400); RED BLOOD COUNT 4.65 M/mm3 (4.10-5.30); REDCELL DISTRIBUTION WIDTH-CV 14.7 % (11.5-14.5)
[2020-07-17 14:14] LABS: ALANINE AMINOTRANSFERASE 16 U/L (4-34); ALBUMIN 3.8 gm/dL (3.5-5.0); ALKALINE PHOSPHATASE 105 U/L (50-136); ANION GAP 10 mmol/L (7-16); AST,SGOT 27 U/L (15-37); BILIRUBIN,TOTAL 0.6 mg/dL (0.0-1.0); BLOOD UREA NITROGEN 10 mg/dL (7-17); CALCIUM 8.8 mg/dL (8.4-10.2); CARBON DIOXIDE 21 mmol/L (22-30); CHLORIDE 107 mmol/L (98-107); CREATININE, serum 0.89 (0.52-1.25); GLUCOSE 138 mg/dL (74-106); POTASSIUM 3.2 mmol/L (3.4-5.0); SODIUM 138 mmol/L (137-145); TOTAL PROTEIN 6.7 gm/dL (6.4-8.2)
[2020-07-17 14:26] LABS: TROPONIN-I < 0.012 ng/mL (0.000-0.035)
[2020-07-17] MEDS ORDERED: LASIX 40MG TABL40 MG PO (14:34)
--- NOTE | 2020-07-17 18:47 | NUR ---
PT arrived via bed from ER. PT is upset about being admitted to the hospital. PT has no c/o. PT is afebrile. alert and orient. Call light in hand. Jose Angel drip at 5 mg/hr. residential mental health worker nurse to take over care.
--- NOTE | 2020-07-17 19:30 | NUR ---
Received report from MARLON Dennis.
--- NOTE | 2020-07-17 20:00 | NUR ---
Patient's personal belongings include: glasses, top denture plate, three silver rings, a necklace, cell phone and telecom field technician, a beaded bracelet, and purse with $40 hunt. Patient refused use of hospital safe when offered. All belongings with patient at bedside.
--- NOTE | 2020-07-17 20:00 | NUR ---
Patient resting quietly in bed. Alert and oriented, all vitals within normal limits. Reports a mild headache and backpain that is chronic. Denies needing pain medication administration at this time. Patient assisted to bathroom with standby assistance; patient steady on feet and tolerated walking well. Patient's HR has consistently rested at 55-58 bpm. Cardene drip set to standby per orders; had previously been infusing at 5mg/hr or 50mL/hr. No further needs noted at this time.
[2020-07-18] VITALS (571 sets, daily range): BP systolic 117–170; BP diastolic 70–104; PULSE 56–69; TEMP 97.6–98.4; O2SAT 84–100
[2020-07-18 06:36] LABS: HEMOGLOBIN 10.9 g/dl (12.5-16.0); MEAN CELL VOLUME 81 fl (80.0-100.0); MEAN CORPUSCULAR HEMOGLOBIN 26 pg (27.0-31.0); MEAN CORPUSCULAR HGB CONC 31 g/dl (33.0-37.0); MEAN PLATELET VOLUME 12.2 fl (7.4-10.4); PLATELET COUNT 276 K/mm3 (130-400); RED BLOOD COUNT 4.28 M/mm3 (4.10-5.30); REDCELL DISTRIBUTION WIDTH-CV 14.7 % (11.5-14.5)
[2020-07-18 06:37] LABS: HEMATOCRIT 34.7 % (37.0-47.0)
[2020-07-18 06:47] LABS: CREATININE, serum 0.89 (0.52-1.25); MAGNESIUM 1.9 mg/dL (1.6-2.3)
--- NOTE | 2020-07-18 07:00 | NUR ---
RECEIVED REPORT FROM MARLON SCHULTZ. ASSUMED CARE OF PT AT THIS TIME.
[2020-07-18 07:07] LABS: IRON,SERUM 25 ug/dL (35-150)
[2020-07-18 07:17] LABS: TOTAL IRON BINDING CAPACITY 416 ug/dL (265-497)
--- NOTE | 2020-07-18 09:38 | NUR ---
Initial visit; Director Of Public Health learned that Brandie was experiencing some negative feelings regarding being hospitalized. She had not eaten since being admitted yesterday and hasn't been told anything regarding her admission to the hosptial. She said she was just feeling upset and that she has a lot of personal issues. Brandie smiled and thanked Director Of Public Health for looking in on her.
--- NOTE | 2020-07-18 15:29 | NUR ---
Ship Joiner met with the patient to complete intake. The patient lives in [place] with her daughter, Ragini. The patient has a walker and nebulizer. She is independent. The patient's PCP is Dr. Urbina and patient receives medications from [facility]. The patient does not have advanced directives but was interested in a DPOA-HC form. Form provided. The patient plans to return home at disharge. The patient may need a medication voucher if her discharge medications are too expensive. There are no additional needs.
[2020-07-18 17:07] LABS: FOLATE (FOLIC ACID) 8.2 ng/mL (7.0-31.4)
[2020-07-19] VITALS (1106 sets, daily range): BP systolic 136–174; BP diastolic 81–120; PULSE 61–79; TEMP 98–99; O2SAT 76–100
--- NOTE | 2020-07-19 04:46 | NUR ---
I recieved report from MARLON Matthews. Patient was resting in bed. Her blood pressures were starting to creep up around 8pm. I tried a few different techniques, different cuff sizes and locations. She mentioned to be during the 9pm medicine pass that she "must take seroquil in order to sleep" and "without it, sleep is not possible." I explained the reason she can't have it is because of QTc enlongation. I did speak to Kaylee GOTTLIEB and Ilsa MASON, whom had this patient the previous car shifter. The patient has a quite a few PVC's. I offered non medical therapies to help fall asleep and she laughed at me. She has a 9mg melatonin ordered, which she refused and said it gives her "restless leg syndrome." I asked her if Benedryl might work, and she said "no, haha it does nothing for me. Seroquil is the only thing that works and I've taken it for years" I called Kaylee GOTTLIEB and asked her suggestions. She sugested benedryl and I told her I already told the patient that and she laughed at me. Kaylee GOTTLIEB sugested Ativan. At 9pm I gave the patient Ativan but it didn't do much. I waited a few hours to let the Ativan work. Around midnight the patient said she wanted something else to help her sleep. I asked if she'd be willing to try benedryl and that sometimes it has a gentle effect to help people fall asleep, she stated, "I guess I will give it a try." I called Kaylee GOTTLIEB and informed her the patient is still awake and has difficulty sleeping. At this time the patient's blood pressure started creeping higher and Kaylee GOTTLIEB ordered Hydrolazine. I administered the Benedryl and Hydrolazine both at midnight. At 330 the patient complained of ichiness and the inablilty to fall asleep. I called Kaylee GOTTLIEB and informed her of the patient's itchiness. She ordered a 12 Lead EKG to determine the patient's QTc, which was 472. Kaylee GOTTLIEB then ordered Ambien for the patient. She has been asleep for the last hour a half.
[2020-07-19 05:41] LABS: BASO # 0.1 (0.0-0.2); BASO % 0.9 % (0.0-2.0); EOS # 0.4 (0.0-0.7); EOS % 3.7 % (0-4.0); GRAN # 6.3 (1.4-6.5); GRAN % 65.2 % (42.2-75.2); HEMATOCRIT 37.4 % (37.0-47.0); HEMOGLOBIN 11.8 g/dl (12.5-16.0); LYMPH # 2.1 (1.2-3.4); LYMPH % 21.5 % (20.0-51.0); MEAN CELL VOLUME 80 fl (80.0-100.0); MEAN CORPUSCULAR HEMOGLOBIN 25 pg (27.0-31.0); MEAN CORPUSCULAR HGB CONC 32 g/dl (33.0-37.0); MONO # 0.8 (0.1-0.6); MONO % 8.4 % (1.7-9.3); PLATELET COUNT 272 K/mm3 (130-400); RED BLOOD COUNT 4.65 M/mm3 (4.10-5.30); REDCELL DISTRIBUTION WIDTH-CV 14.7 % (11.5-14.5)
[2020-07-19 05:52] LABS: CALCIUM 8.8 mg/dL (8.4-10.2); CREATININE, serum 0.83 (0.52-1.25); POTASSIUM 3.3 mmol/L (3.4-5.0)
--- NOTE | 2020-07-19 07:00 | NUR ---
REPORT RECEIVED FROM MIGUEL A MASON. WILL CONTINUE TO MONITOR.
--- NOTE | 2020-07-19 07:39 | NUR ---
CALLED PLACED TO FOR PT'S NAUSEA BUT NO ANSWER. WILL ATTEMPT AGAIN SOON.
--- NOTE | 2020-07-19 08:24 | NUR ---
CALL PLACED TO REGARDING NAUSEA. ORDER RECEIVED FOR ZOFRAN. CLARIFIED WITH PHARMACIST AVRIL WITH AMIO AND PROLONGING QTC AGENTS. STATED OK TO GIVE AT THIS TIME. WILL CONTINUE TO MONITOR.
--- NOTE | 2020-07-19 10:29 | NUR ---
PT'S PHARMACY CALLED AND CLARIFIED DOSE OF SEROQUEL. PHARMACIST STATES DOES IS 450MG Q HS. LAST PICKED UP 07/14/20. NOTIFIED. STATES HE WILL RESTART AT LOWER DOSE, BUT WILL NEED TO VERIFY WITH CARDIOLOGY D/T AMIODARONE.
[2020-07-20] VITALS (63 sets, daily range): BP systolic 111–123; BP diastolic 84–92; PULSE 60–62; TEMP 98–98.6; O2SAT 92–100
--- NOTE | 2020-07-20 05:52 | NUR ---
Patient had a very uneventful night. I have her 2100 medications and she fell asleep. I checked on her several times and asked how she was and she said "I'm doing good" and I said I was di happy to hear that response and she said "So am I". I ensured I dimmed all the lights I could and maintain a calm environment. She slept all night which was the complete oposite of the night before. Her blood pressures have been in the 120's and 110's. She is currently asleep.
[2020-07-20 06:19] LABS: BASO # 0.1 (0.0-0.2); BASO % 0.8 % (0.0-2.0); EOS # 0.4 (0.0-0.7); EOS % 4.8 % (0-4.0); GRAN # 4.7 (1.4-6.5); GRAN % 54.5 % (42.2-75.2); HEMOGLOBIN 11.3 g/dl (12.5-16.0); LYMPH # 2.4 (1.2-3.4); LYMPH % 27.7 % (20.0-51.0); MEAN CELL VOLUME 79 fl (80.0-100.0); MEAN CORPUSCULAR HEMOGLOBIN 25 pg (27.0-31.0); MEAN CORPUSCULAR HGB CONC 32 g/dl (33.0-37.0); MEAN PLATELET VOLUME 11.6 fl (7.4-10.4); PLATELET COUNT 280 K/mm3 (130-400); RED BLOOD COUNT 4.47 M/mm3 (4.10-5.30)
[2020-07-20 06:29] LABS: CALCIUM 9.1 mg/dL (8.4-10.2); CREATININE, serum 1.05 (0.52-1.25); POTASSIUM 3.9 mmol/L (3.4-5.0)
[2020-07-20 06:31] LABS: HEMATOCRIT 35.5 % (37.0-47.0)
--- NOTE | 2020-07-20 08:00 | NUR ---
REPORT RECIEVED FROM OVERNIGHT RN, ALL QUESTIONS ANSWERED. PATIENT FOUND AWAKE ALERT IN BED. VITAL SIGNS STABLE, BP WNL. PATIENT DENIES ANY PAIN OR NAUSEA. STATES HEADACHE IS GONE AT THIS TIME. HEART SOUNDS REGULAR, LUNG SOUNDS CLEAR, BOWEL SOUNDS ACTIVE. PATIENT AMBULATED TO TOILET WITHOUT DIFFICULTY. PLACED BACK IN BED. BREAKFAST TRAY AT BEDSIDE. STATES SHE WANTS TO GO HOME TODAY. ALL SAFETY MAINTAINED, WILL CONTINUE TO MONITOR.
[2020-07-20] MEDS ORDERED: PACERONE100 MG PO (09:54)
[2020-07-20] MEDS ORDERED: COREG 25MG25 MG/TAB PO (09:56)
[2020-07-20] MEDS ORDERED: ALDACTONE 25MG25 M1 PO (09:57)
--- NOTE | 2020-07-20 10:30 | NUR ---
PER MD PATIENT MAY BE DISCHARGED HOME. MADE PATIENT AWARE. STATES SHE WANTS TO LEAVE CONG. VITAL SIGNS STABLE. IV PULLED FROM RIGHT FOREARM, INTACT. PATIENT TO GET DRESSED AT THIS TIME.
--- NOTE | 2020-07-20 10:45 | NUR ---
DISCHARGE INSTRUCTIONS REVIEWED WITH PATIENT. REVIEWED ALL NEW MEDICATIONS AND CHANGES NEEDED TO BE MADE AT HOME. VERBALIZED UNDERSTANDING. PATIENT AMBULATED OUT VIA ER ENTRANCE. LEFT FOR HOME VIA PERSONAL VEHICLE.
[2020-07-24 16:32] LABS: RENIN,PLASMA <0.6 ng/mL/h (())
[2021-01-26] MEDS ORDERED: LUNESTA3 MG PO (20:15)
[2021-01-27] MEDS ORDERED: COREG12.5 MG PO (20:27)
[2021-01-28] MEDS ORDERED: COREG 3.123.125 MG/T PO (10:01)
[2021-01-28] MEDS ORDERED: LIORESAL 1010 MG/TAB PO (11:54)
[2021-01-28] MEDS ORDERED: PROTONIX 40MG T40 MG PO (11:55)
== END 2020-07-20 12:26 | disposition home or self-care (01) | DRG 305 ==
LOC: COL.ER 12:21 → ICU 15:35
PROVIDERS: Physician Assistant; Student in an Organized Health Care Education/Training Program; ADMIT Hospitalist
DX: I16.0 Hypertensive urgency (principal); I50.22 Chronic systolic (congestive) heart failure; I42.0 Dilated cardiomyopathy; I11.0 Hypertensive heart disease with heart failure; I49.3 Ventricular premature depolarization; D64.9 Anemia, unspecified; G47.00 Insomnia, unspecified; F17.210 Nicotine dependence, cigarettes, uncomplicated; J44.9 Chronic obstructive pulmonary disease, unspecified; E87.6 Hypokalemia; E78.5 Hyperlipidemia, unspecified
CPT/HCPCS: 99222-AI; 99232-AI; 99233-AI; 99239; J0360; J2405; J7050

== ENCOUNTER 2021-02-06 06:59 | Day surgery (SDC) | payer BC ==
[~2021-02-06] VITALS: Ht 165.2 cm; Wt 77.5 kg
[~2021-02-06 06:59] MED LIST changes: +ALDACTONE 25MG25 M1 PO; +COREG 25MG25 MG/TAB PO; +COREG 3.123.125 MG/T PO; +COREG12.5 MG PO; +LASIX 40MG TABL40 MG PO; +LIORESAL 1010 MG/TAB PO; +LUNESTA3 MG PO; +PACERONE100 MG PO; +PROTONIX 40MG T40 MG PO
[2021-02-06 08:15] LABS: HEMOGLOBIN 11.2 g/dl (12.5-16.0); MEAN CELL VOLUME 71 fl (80.0-100.0); MEAN CORPUSCULAR HEMOGLOBIN 23 pg (27.0-31.0); MEAN CORPUSCULAR HGB CONC 32 g/dl (33.0-37.0); MEAN PLATELET VOLUME 10.6 fl (7.4-10.4); PLATELET COUNT 308 K/mm3 (130-400); RED BLOOD COUNT 4.98 M/mm3 (4.10-5.30); REDCELL DISTRIBUTION WIDTH-CV 17.2 % (11.5-14.5)
[2021-02-06 08:25] LABS: HEMATOCRIT 35.5 % (37.0-47.0)
[2021-02-06] MEDS ORDERED: PACERONE200 MG PO (08:29)
[2021-02-06] MEDS ORDERED: COREG 3.123.125 MG/T PO (08:30)
[2021-02-06] MEDS ORDERED: FERROUSAL325 MG PO (08:33)
[2021-02-06] MEDS ORDERED: LIPITOR 40MG TA40 MG PO (08:35)
[2021-02-06 08:39] LABS: CALCIUM 9.1 mg/dL (8.4-10.2); CREATININE, serum 1.23 mg/dL (0.57-1.11)
[2021-02-06] MEDS ORDERED: CYANOCOBAL1000 MCG/M IM (08:39)
[2021-02-06] MEDS ORDERED: VITAMIND3 5000 PO (08:40)
[2021-02-06] MEDS ORDERED: PROZAC 20MG20 MG PO (08:46)
[2021-02-06] MEDS ORDERED: LASIX 40MG TABL40 MG PO (08:47)
[2021-02-06] MEDS ORDERED: L-LYSINE PO (08:47)
[2021-02-06] MEDS ORDERED: ALDACTONE 25MG25 M1 PO (08:48)
[2021-02-06 08:50] LABS: POTASSIUM 2.6 mmol/L (3.5-4.5)
[2021-02-06 08:58] LABS: INR 1.1 (0.8-3.0)
[2021-02-06] MEDS ORDERED: PROTONIX 40MG T40 MG PO (09:05)
--- NOTE | 2021-02-06 09:21 | NUR ---
Potassium 10meq started as ordered. sent with Gretchen to start in laborer wrecking and salvaging.Pt to procedure at this time.
[2021-02-06 09:22] VITALS: BP 122/74; PULSE 54; TEMP 98.1
[2021-02-06 10:29] VITALS: BP 122/74; PULSE 53
--- NOTE | 2021-02-06 10:31 | NUR ---
# 20 iv STARTED ON FIRST ATTEMPT USING ASEPTIC TECH FOR K+ REPLACEMENT. SEE MERGE FOR ALL MEDICATION ADMINISTRATION TIMES, INTRA AND POST SEDATION ASSESSMENTS
[2021-02-06 14:46] VITALS: BP 133/80; PULSE 60; TEMP 98.3
[2021-02-06 15:51] VITALS: BP 129/59; BP 129/65; PULSE 60; PULSE 70; TEMP 98.2
[2021-02-06 18:08] VITALS: BP 128/71; PULSE 62; TEMP 98.3
--- NOTE | 2021-02-06 21:18 | NUR ---
Patient's BP 78/46 at this time. Pt is asymptomatic. Dr. Solis notified and orders to continue close monitoring and too renotify if blood pressure continues lowering.
[2021-02-07 05:35] VITALS: BP 97/46; PULSE 61
[2021-02-07 08:12] VITALS: BP 106/65; PULSE 59; TEMP 98.2
--- NOTE | 2021-02-07 09:05 | NUR ---
Scheduled medications given. Shift assessment preformed. Patient C/O pain at incision site on left chest. Does not rate it at this time, but states "It is like it has been the entire time I have been here." Ice pack placed on site, patient repositioned. No abnormalities noted during shift assessment. Dressing to incision site clean, dry, and intact. Patient denies any further needs at this time. Call light in reach.
[2021-02-07 10:51] VITALS: BP 117/74; PULSE 59; TEMP 98.5
--- NOTE | 2021-02-07 12:11 | NUR ---
Plan is to return home with DTR Aminata Wheeler . Patient reports that she resides at home with her DTR and her PCP is Dr. Urbina. Patient reports that she uses [facility] for medications without difficulty. Patient reports that she had a pacemaker/difublator that was placed. Patient denies having any other DME use or supports. Patient reports that she is unsure how she is getting home and will need to talk with her dtr because she does not have any house keys. Notified house of patients concerns on pain medications. Patient reports that she is in pain a 7-10, Patient report she is concerned with returning to work on Tuesday because she feels that she can barely sit up now. . Educated talking with nurse and doc about pain management. Educated patient about supports with case management and offered Taxi Voucher. May or may not need transportation support. Will follow for additional care supports.
[2021-02-07] MEDS ORDERED: NORCO 325 MG-51 TAB PO (13:11)
--- NOTE | 2021-02-07 13:30 | NUR ---
Patient experiencing pain rated a 7/10 at the site of her incision. Describes it as burning, pulling, and aching sensation. Patient encouraged to ice site to help with inflammation, patient states that it irritates the site and prefers to not ice it. PRN Tylenol/codeine given, with no relief. PRN Fentanyl given, which brought pain down to 3/10. Dr. Szymanski notified. Patient assessed and deemed fit for discharge. Discharge education/instructions given, all questions answered. IV's DC'd catheter intact, no signs of phlebitis. ICD inscision clean, dry, and intact. Patient denies any further needs at this time. VSS. Patient A&O. Patient escorted from building by [facility] Staff via wheelchair. Patient's friend transporting home.
== END 2021-02-07 15:30 | disposition home or self-care (01) ==
LOC: COL.CAR 06:59 → MEDICAL 11:46 → COL.CAR 02-07 15:30
PROVIDERS: Internal Medicine Cardiovascular Disease
DX: I42.0 Dilated cardiomyopathy (principal); I50.22 Chronic systolic (congestive) heart failure; I42.8 Other cardiomyopathies; E78.5 Hyperlipidemia, unspecified; I10 Essential (primary) hypertension; J21.9 Acute bronchiolitis, unspecified; J45.909 Unspecified asthma, uncomplicated; F32.9 Major depressive disorder, single episode, unspecified; F41.9 Anxiety disorder, unspecified
CPT/HCPCS: OP; C1721; C1769; C1777; C1894; C1898; J2250; J3010; J3370; J3475; J3480; J7050

== ENCOUNTER 2021-06-01 17:15 | Emergency (ER) | payer BC ==
[~2021-06-01] VITALS: Ht 162.6 cm; Wt 80.5 kg
[~2021-06-01 17:15] MED LIST changes: +CYANOCOBAL1000 MCG/M IM; +FERROUSAL325 MG PO; +L-LYSINE PO; +LIPITOR 40MG TA40 MG PO; +PACERONE200 MG PO; +PROZAC 20MG20 MG PO; +VITAMIND3 5000 PO
[2021-06-01 17:42] VITALS: TEMP 98.3
[2021-06-01] MEDS ORDERED: ROXICODONE 55 MG/TAB PO (22:24)
[2021-06-01 22:40] VITALS: BP 155/80; PULSE 70
== END 2021-06-01 22:40 | disposition home or self-care (01) ==
LOC: COL.ER 17:15
DX: M54.50 Low back pain, unspecified (principal); M54.6 Pain in thoracic spine; F17.210 Nicotine dependence, cigarettes, uncomplicated

== ENCOUNTER 2021-12-16 15:12 | Emergency (ER) | payer BC ==
[~2021-12-16] VITALS: Ht 162.6 cm; Wt 72.3 kg
[~2021-12-16 15:12] MED LIST changes: +COREG 6.256.25 MG/TA PO; +NATURE'S BLE1000 MCG PO; -PACERONE200 MG PO; +PROZAC 10MG10 MG PO; +ROXICODONE 55 MG/TAB PO
[2021-12-16 15:26] VITALS: TEMP 98.1
[2021-12-16 17:30] VITALS: BP 154/96; PULSE 87
== END 2021-12-16 17:40 | disposition home or self-care (01) ==
LOC: COL.ER 15:12
DX: S70.01XA Contusion of right hip, initial encounter (principal); M54.50 Low back pain, unspecified; F17.210 Nicotine dependence, cigarettes, uncomplicated; Z28.310 Unvaccinated for COVID-19; W01.0XXA Fall on same level from slipping, tripping and stumbling without subsequent striking against object, initial encounter; Y92.009 Unspecified place in unspecified non-institutional (private) residence as the place of occurrence of the external cause

== ENCOUNTER 2022-03-25 08:43 | Emergency (ER) | payer BC ==
[~2022-03-25] VITALS: Ht 162.6 cm; Wt 72.3 kg
[2022-03-25 09:03] VITALS: TEMP 97.9
[2022-03-25 11:49] VITALS: BP 162/80; PULSE 60
== END 2022-03-25 11:49 | disposition home or self-care (01) ==
LOC: COL.ER 08:43
DX: M21.371 Foot drop, right foot (principal); W01.0XXA Fall on same level from slipping, tripping and stumbling without subsequent striking against object, initial encounter

== ENCOUNTER 2022-06-22 13:26 | Emergency (ER) | payer BC ==
[~2022-06-22] VITALS: Ht 162.6 cm; Wt 63.2 kg
[~2022-06-22 13:26] MED LIST changes: +DESYREL 50MG50 MG PO; +ENTRESTO 49 MG1 EACH PO; +KLONOPIN 0.5MG0.5 MG PO
[2022-06-22 13:34] VITALS: TEMP 98.3
[2022-06-22 14:44] LABS: BASO # 0.1 K/mm3 (0.0-0.2); BASO % 0.5 % (0.0-2.0); EOS # 0.2 K/mm3 (0.0-0.7); GRAN # 8.2 K/mm3 (1.4-6.5); GRAN % 79.5 % (42.2-75.2); HEMOGLOBIN 14.3 g/dl (12.5-16.0); LYMPH # 0.9 K/mm3 (1.2-3.4); LYMPH % 8.3 % (20.0-51.0); MEAN CELL VOLUME 94 fl (80.0-100.0); MEAN CORPUSCULAR HEMOGLOBIN 31 pg (27-31); MEAN CORPUSCULAR HGB CONC 33 g/dl (33.0-37.0); MEAN PLATELET VOLUME 10.3 fl (7.4-10.4); MONO % 9.4 % (1.7-9.3); PLATELET COUNT 194 K/mm3 (130-400); RED BLOOD COUNT 4.56 M/mm3 (4.10-5.30); REDCELL DISTRIBUTION WIDTH-CV 15.3 % (11.5-14.5)
[2022-06-22 15:02] LABS: ALBUMIN 3.4 gm/dL (3.4-4.8); BILIRUBIN,TOTAL 0.8 mg/dL (0.2-1.2); CALCIUM 8.3 mg/dL (8.4-10.2); CREATININE, serum 0.83 mg/dL (0.57-1.11); POTASSIUM 4.5 mmol/L (3.5-4.5); TOTAL PROTEIN 6.4 gm/dL (6.2-8.1)
[2022-06-22] MEDS ORDERED: PREDNISONE20 MG PO (15:41)
[2022-06-22] MEDS ORDERED: ZITHROMAX Z PA250 MG PO (15:41)
[2022-06-22 15:55] VITALS: BP 148/81; PULSE 70
== END 2022-06-22 15:55 | disposition home or self-care (01) ==
LOC: COL.ER 13:26
PROVIDERS: Physician Assistant
DX: J44.9 Chronic obstructive pulmonary disease, unspecified (principal); F17.210 Nicotine dependence, cigarettes, uncomplicated; Z88.0 Allergy status to penicillin; Z20.822 Contact with and (suspected) exposure to COVID-19

== ENCOUNTER 2022-08-04 09:37 | Emergency (ER) | payer BC ==
[~2022-08-04] VITALS: Ht 162.6 cm; Wt 61.8 kg
[2022-08-04 09:38] VITALS: TEMP 98.1
[2022-08-04 10:20] LABS: COLLECTION METHOD CLEAN CATCH
[2022-08-04 10:27] LABS: BASO # 0.1 K/mm3 (0.0-0.2); BASO % 0.7 % (0.0-2.0); EOS # 0.2 K/mm3 (0.0-0.7); EOS % 2.5 % (0.0-4.0); GRAN % 67.7 % (42.2-75.2); HEMATOCRIT 44.4 % (37.0-47.0); HEMOGLOBIN 14.9 g/dl (12.5-16.0); LYMPH # 1.5 K/mm3 (1.2-3.4); LYMPH % 20.5 % (20.0-51.0); MEAN CELL VOLUME 95 fl (80.0-100.0); MEAN CORPUSCULAR HEMOGLOBIN 32 pg (27-31); MEAN CORPUSCULAR HGB CONC 34 g/dl (33.0-37.0); MEAN PLATELET VOLUME 10.8 fl (7.4-10.4); MONO # 0.6 K/mm3 (0.1-0.6); MONO % 8.3 % (1.7-9.3); PLATELET COUNT 209 K/mm3 (130-400); RED BLOOD COUNT 4.69 M/mm3 (4.10-5.30); REDCELL DISTRIBUTION WIDTH-CV 14.5 % (11.5-14.5)
[2022-08-04 10:30] LABS: URINE BACTERIA None Seen /hpf (NONE SEEN)
[2022-08-04 10:34] LABS: URINE COLOR Yellow (YELLOW)
[2022-08-04 10:35] LABS: URINE APPEARANCE Hazy (CLEAR/HAZY); URINE BLOOD TRACE-INTACT (NEGATIVE); URINE GLUCOSE 2+ (NEGATIVE); URINE KETONE TRACE (NEGATIVE); URINE NITRATE Negative (NEGATIVE); URINE PROTEIN(semi-quant) Negative (NEGATIVE); URINE UROBILINOGEN 0.2 E.U/dL (0.2-1.0)
[2022-08-04 10:48] LABS: ALANINE AMINOTRANSFERASE 23 U/L (0-55); ALBUMIN 3.6 gm/dL (3.4-4.8); ALKALINE PHOSPHATASE 81 U/L (40-150); ANION GAP 13 mmol/L (7-16); AST,SGOT 26 U/L (5-34); BILIRUBIN,TOTAL 1.5 mg/dL (0.2-1.2); BLOOD UREA NITROGEN 13 mg/dL (10-20); CALCIUM 8.4 mg/dL (8.4-10.2); CARBON DIOXIDE 26 mmol/L (23-31); CHLORIDE 102 mmol/L (98-107); CREATININE, serum 0.91 mg/dL (0.57-1.11); GLUCOSE 82 mg/dL (70-99); SODIUM 141 mmol/L (136-145); TOTAL PROTEIN 6.3 gm/dL (6.2-8.1)
[2022-08-04 11:06] LABS: TROPONIN-I < 0.010 ng/mL (0.00-0.033)
[2022-08-04] MEDS ORDERED: K-DUR20 MEQ PO (11:15)
[2022-08-04 11:51] VITALS: BP 133/83; PULSE 64
== END 2022-08-04 11:51 | disposition home or self-care (01) ==
LOC: COL.ER 09:37
PROVIDERS: Emergency Medicine
DX: E87.6 Hypokalemia (principal); E80.7 Disorder of bilirubin metabolism, unspecified; Z20.822 Contact with and (suspected) exposure to COVID-19
CPT/HCPCS: J2405; J7030

== ENCOUNTER 2023-02-25 07:38 | Emergency (ER) | payer OTHER ==
[~2023-02-25] VITALS: Ht 162.6 cm; Wt 52.0 kg
[~2023-02-25 07:38] MED LIST changes: +ALBUTEROL0.83 MG/ML IH; +JARDIANCE10; +K-DUR20 MEQ PO; +VITAMIN B-6100 MG; +VITAMIN C500 MG PO
[2023-02-25 08:27] LABS: BASO # 0.1 K/mm3 (0.0-0.2); BASO % 1.3 % (0.0-2.0); EOS # 0.4 K/mm3 (0.0-0.7); EOS % 5.6 % (0.0-4.0); GRAN # 3.9 K/mm3 (1.4-6.5); GRAN % 51.7 % (42.2-75.2); HEMATOCRIT 51.7 % (37.0-47.0); HEMOGLOBIN 16.1 g/dl (12.5-16.0); LYMPH # 2.4 K/mm3 (1.2-3.4); LYMPH % 31.5 % (20.0-51.0); MEAN CELL VOLUME 93 fl (80.0-100.0); MEAN CORPUSCULAR HEMOGLOBIN 29 pg (27-31); MEAN CORPUSCULAR HGB CONC 31 g/dl (33.0-37.0); MONO # 0.7 K/mm3 (0.1-0.6); MONO % 9.6 % (1.7-9.3); PLATELET COUNT 318 K/mm3 (130-400); RED BLOOD COUNT 5.59 M/mm3 (4.10-5.30); REDCELL DISTRIBUTION WIDTH-CV 16.5 % (11.5-14.5)
[2023-02-25 08:30] LABS: ALBUMIN 3.7 gm/dL (3.4-4.8); BILIRUBIN,TOTAL 0.6 mg/dL (0.2-1.2); CALCIUM 8.9 mg/dL (8.4-10.2); CREATININE, serum 0.8 mg/dL (0.57-1.11); POTASSIUM 3.9 mmol/L (3.5-4.5); TOTAL PROTEIN 6.7 gm/dL (6.2-8.1)
[2023-02-25] MEDS ORDERED: ZOFRAN ODT4 MG PO (09:30)
[2023-02-25 10:22] VITALS: BP 136/83; PULSE 63; TEMP 98.4
== END 2023-02-25 10:46 | disposition home or self-care (01) ==
LOC: COL.ER 07:38
PROVIDERS: Emergency Medicine
DX: R11.2 Nausea with vomiting, unspecified (principal); R19.7 Diarrhea, unspecified; F17.290 Nicotine dependence, other tobacco product, uncomplicated
CPT/HCPCS: J2405; J7030

== ENCOUNTER 2023-05-28 14:27 | Emergency (ER) | payer OTHER ==
[~2023-05-28] VITALS: Ht 162.6 cm; Wt 51.4 kg
[2023-05-28 14:28] VITALS: TEMP 97
[2023-05-28] MEDS ORDERED: Ondansetron 4 MG/2 ML VIAL IV ONE (14:45)
[2023-05-28] MEDS ORDERED: NS 1,000 ML IV ONE (14:45)
[2023-05-28 15:39] LABS: BASO % 0.5 % (0.0-2.0); EOS # 0.1 K/mm3 (0.0-0.7); GRAN # 6.6 K/mm3 (1.4-6.5); HEMATOCRIT 41.9 % (37.0-47.0); HEMOGLOBIN 14.4 g/dl (12.5-16.0); LYMPH # 0.7 K/mm3 (1.2-3.4); MEAN CELL VOLUME 89 fl (80.0-100.0); MEAN CORPUSCULAR HEMOGLOBIN 30 pg (27-31); MEAN CORPUSCULAR HGB CONC 34 g/dl (33.0-37.0); MEAN PLATELET VOLUME 10.3 fl (7.4-10.4); MONO # 0.6 K/mm3 (0.1-0.6); PLATELET COUNT 197 K/mm3 (130-400); RED BLOOD COUNT 4.73 M/mm3 (4.10-5.30); REDCELL DISTRIBUTION WIDTH-CV 13.9 % (11.5-14.5)
[2023-05-28 15:46] LABS: COLLECTION METHOD CLEAN CATCH
[2023-05-28 15:55] LABS: ALBUMIN 3.3 gm/dL (3.4-4.8); BILIRUBIN,TOTAL 1.5 mg/dL (0.2-1.2); C-REACTIVE PROTEIN 4.69 mg/dL (0.00-0.50); CALCIUM 8.6 mg/dL (8.4-10.2); CREATININE, serum 0.75 mg/dL (0.57-1.11); POTASSIUM 3.1 mmol/L (3.5-4.5); TOTAL PROTEIN 6.2 gm/dL (6.2-8.1)
[2023-05-28 15:56] LABS: SQUAMOUS EPITHELIAL 0-2 /hpf (0-10); URINE APPEARANCE Clear (CLEAR/HAZY); URINE BLOOD TRACE-LYSED (NEGATIVE); URINE COLOR Yellow (YELLOW); URINE GLUCOSE 1+ (NEGATIVE); URINE KETONE 1+ (NEGATIVE); URINE NITRATE Negative (NEGATIVE); URINE PROTEIN(semi-quant) Negative (NEGATIVE); URINE UROBILINOGEN 0.2 E.U/dL (0.2-1.0)
[2023-05-28] MEDS ORDERED: Iohexol 300 - 100 ML VIAL IV ONE (18:38)
[2023-05-28] MEDS ORDERED: NS 100 ML IV SCH (18:38)
[2023-05-28] MEDS ORDERED: diphenhydrAMINE 50 MG/ML 1 ML VIAL IV ONE (18:45)
[2023-05-28] MEDS ORDERED: dexAMETHasone 10 MG/ML VIAL IV ONE (18:45)
[2023-05-28 19:56] VITALS: BP 147/91; PULSE 72
== END 2023-05-28 19:58 | disposition home or self-care (01) ==
LOC: COL.ER 14:27
PROVIDERS: Emergency Medicine; Family Medicine
DX: E86.0 Dehydration (principal); K52.9 Noninfective gastroenteritis and colitis, unspecified; F41.0 Panic disorder [episodic paroxysmal anxiety]
CPT/HCPCS: J1100; J1200; J2405; J7030; Q9967

== ENCOUNTER 2023-06-06 14:11 | Emergency (ER) | payer OTHER ==
[~2023-06-06] VITALS: Ht 162.6 cm; Wt 50.0 kg
[2023-06-06 14:19] VITALS: TEMP 97.7
[2023-06-06] MEDS ORDERED: SEROQUEL 2525 MG/TAB PO (14:33)
[2023-06-06] MEDS ORDERED: LIPITOR20 MG PO (14:34)
[2023-06-06 16:10] LABS: BASO # 0.1 K/mm3 (0.0-0.2); BASO % 0.6 % (0.0-2.0); EOS # 0.4 K/mm3 (0.0-0.7); EOS % 4.5 % (0.0-4.0); GRAN # 5.1 K/mm3 (1.4-6.5); HEMATOCRIT 46.5 % (37.0-47.0); HEMOGLOBIN 15.6 g/dl (12.5-16.0); LYMPH # 2.3 K/mm3 (1.2-3.4); LYMPH % 26.3 % (20.0-51.0); MEAN CELL VOLUME 91 fl (80.0-100.0); MEAN CORPUSCULAR HEMOGLOBIN 31 pg (27-31); MEAN CORPUSCULAR HGB CONC 34 g/dl (33.0-37.0); MONO # 0.9 K/mm3 (0.1-0.6); MONO % 10.3 % (1.7-9.3); PLATELET COUNT 301 K/mm3 (130-400); RED BLOOD COUNT 5.09 M/mm3 (4.10-5.30); REDCELL DISTRIBUTION WIDTH-CV 13.9 % (11.5-14.5)
[2023-06-06 16:19] LABS: ALANINE AMINOTRANSFERASE 39 U/L (0-55); ALBUMIN 3.4 gm/dL (3.4-4.8); ALKALINE PHOSPHATASE 132 U/L (40-150); ANION GAP 12 mmol/L (7-16); AST,SGOT 33 U/L (5-34); BLOOD UREA NITROGEN 6 mg/dL (10-20); CARBON DIOXIDE 24 mmol/L (23-31); CHLORIDE 104 mmol/L (98-107); CREATININE, serum 0.85 mg/dL (0.57-1.11); GLUCOSE 183 mg/dL (70-99); LIPASE 30 U/L (8-78); POTASSIUM 3.8 mmol/L (3.5-4.5); SODIUM 140 mmol/L (136-145); TOTAL PROTEIN 6.6 gm/dL (6.2-8.1)
[2023-06-06 16:25] LABS: TROPONIN-I < 0.010 ng/mL (0.00-0.033)
[2023-06-06] MEDS ORDERED: DOXYCYCLINE HY100 MG PO (16:35)
[2023-06-06 17:03] VITALS: BP 155/96; PULSE 75
== END 2023-06-06 17:10 | disposition home or self-care (01) ==
LOC: COL.ER 14:11
PROVIDERS: Physician Assistant
DX: J32.9 Chronic sinusitis, unspecified (principal); I10 Essential (primary) hypertension; F17.210 Nicotine dependence, cigarettes, uncomplicated; Z95.0 Presence of cardiac pacemaker; Z88.0 Allergy status to penicillin
CPT/HCPCS: 31867; L4386

== ENCOUNTER 2023-06-16 17:31 | Emergency (ER) | payer OTHER ==
[~2023-06-16] VITALS: Ht 162.6 cm; Wt 50.0 kg
[~2023-06-16 17:31] MED LIST changes: +DOXYCYCLINE HY100 MG PO; +LIPITOR20 MG PO; +SEROQUEL 2525 MG/TAB PO
[2023-06-16 17:44] VITALS: TEMP 98.2
[2023-06-16] MEDS ORDERED: hydrALAZINE 20 MG/ML 1 ML VIAL IV ONE ×2 (20:15→21:15)
[2023-06-16 20:43] LABS: BASO # 0.1 K/mm3 (0.0-0.2); BASO % 0.7 % (0.0-2.0); EOS # 0.2 K/mm3 (0.0-0.7); GRAN % 58.1 % (42.2-75.2); HEMOGLOBIN 12.4 g/dl (12.5-16.0); LYMPH # 2.8 K/mm3 (1.2-3.4); LYMPH % 27.5 % (20.0-51.0); MEAN CELL VOLUME 90 fl (80.0-100.0); MEAN CORPUSCULAR HEMOGLOBIN 31 pg (27-31); MEAN CORPUSCULAR HGB CONC 34 g/dl (33.0-37.0); MEAN PLATELET VOLUME 10.1 fl (7.4-10.4); MONO # 1.2 K/mm3 (0.1-0.6); MONO % 11.4 % (1.7-9.3); PLATELET COUNT 304 K/mm3 (130-400); RED BLOOD COUNT 4.05 M/mm3 (4.10-5.30); REDCELL DISTRIBUTION WIDTH-CV 13.5 % (11.5-14.5)
[2023-06-16 20:44] LABS: HEMATOCRIT 36.3 % (37.0-47.0)
[2023-06-16 20:51] LABS: PROTHROMBIN TIME 11.1 SECONDS (9.7-12.8)
[2023-06-16 20:59] LABS: ALBUMIN 3.1 gm/dL (3.4-4.8); BILIRUBIN,TOTAL 0.7 mg/dL (0.2-1.2); CALCIUM 8.9 mg/dL (8.4-10.2); CREATININE, serum 0.86 mg/dL (0.57-1.11); POTASSIUM 3.9 mmol/L (3.5-4.5); TOTAL PROTEIN 5.9 gm/dL (6.2-8.1)
[2023-06-16] MEDS ORDERED: fentaNYL 50 MCG/ML 2 ML VIAL IV ONE (21:45)
[2023-06-16 23:07] VITALS: BP 134/83; PULSE 64
== END 2023-06-16 23:07 | disposition short-term general hospital (02) ==
LOC: COL.ER 17:31
PROVIDERS: Nurse Practitioner
DX: S06.6XAA Traumatic subarachnoid hemorrhage with loss of consciousness status unknown, initial encounter (principal); I11.0 Hypertensive heart disease with heart failure; I50.9 Heart failure, unspecified; R40.2412 Glasgow coma scale score 13-15, at arrival to emergency department; W18.30XA Fall on same level, unspecified, initial encounter; W22.8XXA Striking against or struck by other objects, initial encounter; Y93.01 Activity, walking, marching and hiking
CPT/HCPCS: J0360; J3010

== ENCOUNTER 2023-12-07 20:12 | Emergency (ER) | payer SELFPAY ==
[~2023-12-07] VITALS: Ht 162.6 cm; Wt 59.1 kg
[~2023-12-07 20:12] MED LIST changes: +ATROVENT I0.2 MG/1 M IH; +K-TAB20 PO; +LASIX 20MG TABL20 MG PO; +LYSINE1000 MG PO; +SINEMET 25/101 UDTAB PO; +TYLENOL 325MG325 MG PO
[2023-12-07 20:17] VITALS: TEMP 98.9
[2023-12-07 21:36] LABS: COLLECTION METHOD CLEAN CATCH
[2023-12-07 21:41] LABS: URINE APPEARANCE CLEAR (CLEAR/HAZY); URINE BLOOD NEGATIVE (NEGATIVE); URINE COLOR YELLOW (YELLOW); URINE GLUCOSE 2+ (NEGATIVE); URINE KETONE NEGATIVE (NEGATIVE); URINE NITRATE NEGATIVE (NEGATIVE); URINE PROTEIN(semi-quant) NEGATIVE (NEGATIVE)
[2023-12-07] MEDS ORDERED: HYDROmorphone 0.5 MG/0.5 ML SYRINGE IV ONE (21:45)
[2023-12-07 21:55] LABS: BASO # 0.1 K/mm3 (0.0-0.2); BASO % 0.6 % (0.0-2.0); EOS # 0.4 K/mm3 (0.0-0.7); GRAN % 64.3 % (42.2-75.2); HEMATOCRIT 43.5 % (37.0-47.0); HEMOGLOBIN 14.3 g/dl (12.5-16.0); LYMPH # 2.1 K/mm3 (1.2-3.4); LYMPH % 18.9 % (20.0-51.0); MEAN CELL VOLUME 91 fl (80.0-100.0); MEAN CORPUSCULAR HEMOGLOBIN 30 pg (27-31); MEAN CORPUSCULAR HGB CONC 33 g/dl (33.0-37.0); MEAN PLATELET VOLUME 10.5 fl (7.4-10.4); MONO # 1.3 K/mm3 (0.1-0.6); MONO % 11.9 % (1.7-9.3); PLATELET COUNT 227 K/mm3 (130-400); RED BLOOD COUNT 4.79 M/mm3 (4.10-5.30); REDCELL DISTRIBUTION WIDTH-CV 13.7 % (11.5-14.5)
[2023-12-07 22:17] LABS: ALBUMIN 3.8 g/dL (3.4-4.8); CALCIUM 9.2 mg/dL (8.4-10.2); CREATININE, serum 0.86 mg/dL (0.57-1.11); POTASSIUM 3.6 mEq/L (3.5-4.5); TOTAL PROTEIN 7.3 g/dl (6.2-8.1)
[2023-12-07 22:23] LABS: TROPONIN-I 0.012 ng/mL (0.00-0.033)
[2023-12-07 22:33] LABS: BILIRUBIN,TOTAL 0.8 mg/dL (0.2-1.2)
[2023-12-07] MEDS ORDERED: diphenhydrAMINE 50 MG/ML 1 ML VIAL IV ONE (23:45)
[2023-12-07] MEDS ORDERED: methylPREDNISolone Sod Succ 125 MG/2 ML VIAL IV ONE (23:45)
[2023-12-07] MEDS ORDERED: NS 100 ML IV ONE (23:59)
[2023-12-07] MEDS ORDERED: Iohexol 300 - 100 ML VIAL IV ONE (23:59)
[2023-12-08] MEDS ORDERED: Home HYDROcodone/Acetaminophen 7.5/325 MG #4 TABS/PACK PO ONE (01:15)
[2023-12-08 01:40] VITALS: BP 137/84; PULSE 73
[2023-12-12] MEDS ORDERED: PERCOCET 325 MG1 TA2 PO (19:38)
== END 2023-12-08 01:40 | disposition home or self-care (01) ==
LOC: COL.ER 20:12
PROVIDERS: Nurse Practitioner
DX: M54.6 Pain in thoracic spine (principal); R10.11 Right upper quadrant pain; F17.210 Nicotine dependence, cigarettes, uncomplicated; F17.290 Nicotine dependence, other tobacco product, uncomplicated
CPT/HCPCS: J1170; J1200; J2919; Q9967

== ENCOUNTER 2023-12-16 21:55 | Observation (INO) | payer SELFPAY ==
[~2023-12-16] VITALS: Ht 162.6 cm; Wt 63.0 kg
[2023-12-16 21:00] VITALS: BP_SYST 152
[2023-12-16] MEDS ORDERED: LR 1,000 ML IV SCH (22:00)
[2023-12-16] MEDS ORDERED: Ondansetron 4 MG/2 ML VIAL IV PRN (22:00)
[2023-12-16] MEDS ORDERED: Morphine 4 MG/ML VIAL IV PRN (22:00)
[2023-12-16 22:28] VITALS: BP 152/104; PULSE 76; TEMP 98.3
[2023-12-16 22:51] LABS: BASO # 0.1 K/mm3 (0.0-0.2); BASO % 0.6 % (0.0-2.0); EOS # 0.6 K/mm3 (0.0-0.7); EOS % 6.9 % (0.0-4.0); GRAN # 3.9 K/mm3 (1.4-6.5); GRAN % 46.8 % (42.2-75.2); HEMATOCRIT 41.3 % (37.0-47.0); HEMOGLOBIN 13.7 g/dl (12.5-16.0); LYMPH # 2.7 K/mm3 (1.2-3.4); LYMPH % 32.2 % (20.0-51.0); MEAN CELL VOLUME 90 fl (80.0-100.0); MEAN CORPUSCULAR HEMOGLOBIN 30 pg (27-31); MEAN CORPUSCULAR HGB CONC 33 g/dl (33.0-37.0); MEAN PLATELET VOLUME 10.5 fl (7.4-10.4); MONO # 1.1 K/mm3 (0.1-0.6); MONO % 13.1 % (1.7-9.3); PLATELET COUNT 329 K/mm3 (130-400); RED BLOOD COUNT 4.61 M/mm3 (4.10-5.30); REDCELL DISTRIBUTION WIDTH-CV 13.2 % (11.5-14.5)
--- NOTE | 2023-12-16 22:51 | NUR ---
pt arrived to room 343 at 2205. pt ambulated to bed without issue. admission, med rec, and physical assessment complete. iv inserted to right forearm, pt tolerated well. pt c/o 10/10 right sided abd pain, prn morphine administered per orders. pt also c/o nausea, prn zofran administered per orders. LR running to right FA IV at 100ml/hr without issue. pt changed into gown and is resting in bed. pt aware of NPO status and plan of care. call light in reach. all needs met at this time.
[2023-12-16 23:13] LABS: ALBUMIN 3.2 g/dL (3.4-4.8); BILIRUBIN,TOTAL 0.4 mg/dL (0.2-1.2); CALCIUM 8.9 mg/dL (8.4-10.2); CREATININE, serum 0.96 mg/dL (0.57-1.11); TOTAL PROTEIN 6.4 g/dl (6.2-8.1)
[2023-12-16] MEDS ORDERED: diphenhydrAMINE 50 MG/ML 1 ML VIAL IV PRN (23:15)
[2023-12-16] MEDS ORDERED: HYDROmorphone 0.5 MG/0.5 ML SYRINGE IV PRN (23:15)
--- NOTE | 2023-12-16 23:15 | NUR ---
pt reporting increased pain after PRN morphine dose. updated Dr Tamayo. new order for IV Dilaudid 1mg Q2H PRN for pain. pt also reported previous itching with morphine administration. new order for IV Benadryl 12.5mg Q6H for itching.
[2023-12-17] VITALS (14 sets, daily range): BP systolic 118–158; BP diastolic 61–97; PULSE 60–78; TEMP 97–98.4
--- NOTE | 2023-12-17 00:33 | NUR ---
pt reporting increased abd pain rated 9/10, prn dilaudid administered per orders.
--- NOTE | 2023-12-17 01:44 | NUR ---
pt reporting some itching after PRN medications, prn benadryl administered per orders.
--- NOTE | 2023-12-17 06:49 | NUR ---
Pt laying in bed watching TV. Denies needs at this time. Call light in reach.
--- NOTE | 2023-12-17 08:00 | NUR ---
Pt laying in bed. A&Ox4. VSS. S1S2. Clear lungs on RA. ABD round, soft, tender to touch. Pt reporting pain 7/10, sharp, RLQ and across ABD. Pt denies n/v, headache, dizziness. Palpable pulses in all extremities with 5/5 strength. IV in R forearm iwth LR at 100 cc/hr. Call light in reach. No further needs.
--- NOTE | 2023-12-17 09:20 | NUR ---
Pt off floor for surgery.
[2023-12-17] MEDS ORDERED: Midazolam 2 MG/2 ML VIAL ONE (09:28)
[2023-12-17] MEDS ORDERED: fentaNYL 50 MCG/ML 2 ML VIAL ONE ×2 (09:28→10:59)
[2023-12-17] MEDS ORDERED: Rocuronium 50 MG/5 ML Multi-Dose VIAL ONE ×2 (09:28→11:20)
[2023-12-17] MEDS ORDERED: Ondansetron 4 MG/2 ML VIAL ONE ×2 (09:29→11:54)
[2023-12-17] MEDS ORDERED: NS 20 ML IV ONE (09:29)
[2023-12-17] MEDS ORDERED: Glycopyrrolate 0.2 MG/ML 1 ML VIAL ONE (09:29)
[2023-12-17] MEDS ORDERED: Ketorolac 30 MG/ML VIAL ONE (09:29)
[2023-12-17] MEDS ORDERED: dexAMETHasone 10 MG/ML VIAL ONE (09:29)
[2023-12-17] MEDS ORDERED: Lidocaine PF 2% (20 MG/ML) 5 ML VIAL ONE (09:31)
[2023-12-17] MEDS ORDERED: hydrALAZINE 20 MG/ML 1 ML VIAL IV PRN (09:45)
[2023-12-17] MEDS ORDERED: Scopolamine 1 MG Delivered 3-Day PATCH TD SCH (09:45)
[2023-12-17] MEDS ORDERED: LR 1,000 ML IV SCH (09:45)
[2023-12-17] MEDS ORDERED: HYDROmorphone 1 MG/1 ML SYRINGE [PACU/SDC ONLY] IV PRN (09:45)
[2023-12-17] MEDS ORDERED: fentaNYL 50 MCG/ML 1 ML SYRINGE/VIAL [PACU/SDC ONLY] IV PRN (09:45)
[2023-12-17] MEDS ORDERED: Ondansetron 4 MG/2 ML VIAL IV PRN (09:45)
[2023-12-17] MEDS ORDERED: HYDROmorphone 2 MG/1 ML VIAL ONE (10:59)
[2023-12-17] MEDS ORDERED: BUPivacaine PF 0.5% w EPI (1:200,000) 10 ML VIAL IJ ONE (11:36)
--- NOTE | 2023-12-17 12:08 | NUR ---
Data: Patient accepted spiritual care visit offered during Stave Block Splitter rounds. Surgery techs arrived at end of prayer to take Patient to surgery. Assessment: Patient was preparing to go to surgery and desired prayer. Plan of Care: Stave Block Splitter provided prayer. Patient expressed her appreciation. Stave Block Splitter will follow-up this afternoon after Patient recovers.
--- NOTE | 2023-12-17 13:05 | NUR ---
Pt transferred back to room from PACU. Pt drowsy but oriented x4. VSS. S1S2. Clear lungs. ABD round, soft, tender to palpation with audible bowel sounds. Palpable pulses in all extremities. IV in R froearm with LR. Pt denies n/v at this time.Pt reports pain in ABD is tolerable. Offerred Pt ice chips and continuing to monitor post-op vitals. Call light in reach.
[2023-12-17] MEDS ORDERED: oxyCODONE/Acetaminophen 5-325 MG TAB PO PRN (13:15)
--- NOTE | 2023-12-17 13:51 | NUR ---
Data: Follow-up Professional Benefits Sales Consultant visit as agreed upon before surgery. Assessment: Patient sleepy. Grateful for follow-up visit. Hopes to discharge this later today. Plan of Care: Professional Benefits Sales Consultant provided prayer for rest and healing. Patient thanked Professional Benefits Sales Consultant. Chaplains will remain available as needed/requested while Patient is admitted to this hospital.
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
[2023-12-17] MEDS ORDERED: PERCOCET 325 MG1 TA2 PO (16:42)
[2023-12-17] MEDS ORDERED: Carvedilol 3.125 MG TAB PO SCH (17:00)
--- NOTE | 2023-12-17 17:06 | NUR ---
Pt educated on D/C instructions and information. Answered Pt questions. D/C'ed Pt's IV from L forearm. Pressure bandage applied. No further needs. Pt ambulated to vehicle with this RN. Pt's friend driving them home.
[2023-12-18] MEDS ORDERED: Empagliflozin 10 MG TAB PO SCH (09:00)
== END 2023-12-17 17:08 | disposition home or self-care (01) ==
LOC: SURG 21:55
PROVIDERS: ADMIT Surgery
DX: K80.10 Calculus of gallbladder with chronic cholecystitis without obstruction (principal); K91.89 Other postprocedural complications and disorders of digestive system; I11.0 Hypertensive heart disease with heart failure; I50.9 Heart failure, unspecified; I42.8 Other cardiomyopathies; K21.9 Gastro-esophageal reflux disease without esophagitis; F17.210 Nicotine dependence, cigarettes, uncomplicated; Z98.0 Intestinal bypass and anastomosis status; Z79.899 Other long term (current) drug therapy; Z95.810 Presence of automatic (implantable) cardiac defibrillator; Z98.84 Bariatric surgery status
CPT/HCPCS: G0378; G0379; J0360; J0690; J0780; J1100; J1170; J1200; J1885; J2250; J2270; J2405; J2704; J3010; J7120